=== PATIENT | female | born 1940 | race Caucasian/White ===

== ENCOUNTER 2021-07-29 12:30 | Inpatient (IN) | payer MEDICARE ==
[~2021-07-29] VITALS: Ht 157.5 cm; Wt 64.8 kg
--- NOTE | 2021-07-29 13:15 | NUR ---
Admission Note with Justification for Admission to [facility] Patient admitted to [facility] for protective oversight for emergency stabilization of acute psychiatric crisis. Pt admitted from: Home/[facility] Mode of arrival: EMS Accompanied By: EMS Precipitating behaviors that initiated intake and admission: EMS found gas stove on in the home, food & cat feces scattered on floor, AMS, psychosis, self care failure, unsafe at home, delusions, pt found outside her home on the ground in hot weather, seeing policemen, fear of ending up in [facility], paranoid Description of failure of out patient attempts at stabilization in previous setting list behavior and medication trials: hospital ER 07/21, lithium, ativan, lamictal, increased lithium on 07/19/21 Behaviors and assessment findings upon admission: Pt is very pleasant and cooperative upon arrival, but slightly confused, oriented to self and date. Pt is not aware where she is, but able to tell me where she was before coming here. Pt has some bruising on her arms and a rash that covers her entire back, but reports she is not bothered by it. Pt denies having any pain/concerns, but requests something to eat. Boxed lunch was ordered from the kitchen and pt was left alone in her room to rest. Will continue to monitor. Plan: Admit for protective oversight for adjustment and stabilization of medications, behaviors and mood. Intense treatment regimen including groups, medication adjustments, therapy, consistent regimen for ADL's, self care, and sleep hygiene. Daily monitoring by Inpatient staff, Psychiatry, and Medical Physician.
[2021-07-29 14:37] VITALS: BP 130/85
[2021-07-29] MEDS ORDERED: ACETAMINOPHEN 325 MG TABLET PO PRN (15:00)
[2021-07-29] MEDS ORDERED: METHYL SALICYLATE/MENTHOL TOPICAL OINTMENT 57GM TUBE. TP PRN (15:00)
[2021-07-29] MEDS ORDERED: MAGNESIUM HYDROXIDE 2,400 MG/30 ML ORAL.SUSP. PO PRN (15:00)
[2021-07-29] MEDS ORDERED: MAG HYDROX/AL HYDROX/SIMETH 30 ML ORAL.SUSP PO PRN (15:00)
[2021-07-29] MEDS ORDERED: ASPI-889 PO (15:39)
[2021-07-29] MEDS ORDERED: LITH150C PO (15:39)
[2021-07-29] MEDS ORDERED: LITH300T3 PO (15:39)
[2021-07-29] MEDS ORDERED: LEVO75TA5 PO (15:39)
[2021-07-29] MEDS ORDERED: DONE5TAB7 PO (15:39)
[2021-07-29] MEDS ORDERED: ACET325T21 PO (15:39)
[2021-07-29] MEDS ORDERED: NIFE90TA PO (15:39)
[2021-07-29 15:59] VITALS: BP 164/95
[2021-07-29 16:56] LABS: BASO # 0.1 x10^3/uL (0.0-0.2); BASO % 1 % (0-3); EOS # 0.4 x10^3/uL (0.0-0.7); EOS % 3 % (0-3); HEMATOCRIT 43.7 % (36.0-47.0); HEMOGLOBIN 14.1 g/dL (12.0-15.5); LYMPH % 16 % (24-48); MEAN CORPUSCULAR HEMOGLOBIN 32 pg (25-35); MEAN CORPUSCULAR HGB CONC 32 g/dL (31-37); MEAN CORPUSCULAR VOLUME 98 fL (79-100); MONO # 0.9 x10^3/uL (0.0-1.1); MONO % 7 % (0-9); NEUT # 8.8 x10^3uL (1.8-7.7); NEUT % 73 % (31-73); PLATELET COUNT 255 x10^3/uL (140-400); RED BLOOD COUNT 4.46 x10^6/uL (3.50-5.40); RED CELL DISTRIBUTION WIDTH 14.3 % (11.5-14.5); WHITE BLOOD COUNT 12.1 x10^3/uL (4.0-11.0)
[2021-07-29 17:14] LABS: ALBUMIN 3.7 g/dL (3.4-5.0); ALBUMIN/GLOBULIN RATIO 0.9 (1.0-1.7); CALCIUM 10.1 mg/dL (8.5-10.1); CREATININE 1.5 mg/dL (0.6-1.0); GFR 33.4; MAGNESIUM 2.5 mg/dL (1.8-2.4); POTASSIUM 4.6 mmol/L (3.5-5.1); TOTAL BILIRUBIN 0.3 mg/dL (0.2-1.0); TOTAL PROTEIN 7.7 g/dL (6.4-8.2)
[2021-07-29] MEDS: LITHIUM CARBONATE 300 MG TABLET PO SCH (19:58)
[2021-07-29] MEDS: DONEPEZIL HCL 5 MG TABLET. PO SCH (19:58)
[2021-07-29] MEDS ORDERED: NON FORMULARY ITEM (Lithium Carbonate 300 MG) PO SCH (21:00)
[2021-07-29] MEDS ORDERED: traZODone 50 MG TABLET. PO PRN (21:30)
--- NOTE | 2021-07-29 22:26 | PDOC ---
Exam Note: Isaiah Note: Please also refer to the separate dictated note~for this date of service dictated separately.~Patient seen individually. Discussed the patient with Nursing staff reviewed the chart.~Reviewed interim history and current functioning. Reviewed vital signs,~Labs/ Radiology~and current medications noted below. Continue current treatment with the changes noted in the dictated addendum note Assessment: Vital Signs/I&O: Vital Signs Date Time Temp Pulse Resp B/P (MAP) Pulse Ox O2 Delivery O2 Flow Rate FiO2 07/29/21 15:59 98.3 90 18 164/95 (118) 97 Labs: Laboratory Tests Test 07/29/21 16:46 White Blood Count 12.1 x10^3/uL (4.0-11.0) H Red Blood Count 4.46 x10^6/uL (3.50-5.40) Hemoglobin 14.1 g/dL (12.0-15.5) Hematocrit 43.7 % (36.0-47.0) Mean Corpuscular Volume 98 fL (79-100) Mean Corpuscular Hemoglobin 32 pg (25-35) Mean Corpuscular Hemoglobin Concent 32 g/dL (31-37) Red Cell Distribution Width 14.3 % (11.5-14.5) Platelet Count 255 x10^3/uL (140-400) Neutrophils (%) (Auto) 73 % (31-73) Lymphocytes (%) (Auto) 16 % (24-48) L Monocytes (%) (Auto) 7 % (0-9) Eosinophils (%) (Auto) 3 % (0-3) Basophils (%) (Auto) 1 % (0-3) Neutrophils # (Auto) 8.8 x10^3uL (1.8-7.7) H Lymphocytes # (Auto) 2.0 x10^3/uL (1.0-4.8) Monocytes # (Auto) 0.9 x10^3/uL (0.0-1.1) Eosinophils # (Auto) 0.4 x10^3/uL (0.0-0.7) Basophils # (Auto) 0.1 x10^3/uL (0.0-0.2) D-Dimer (Gwen) 1.88 mg/L (0.00-0.50) H Sodium Level 140 mmol/L (136-145) Potassium Level 4.6 mmol/L (3.5-5.1) Chloride Level 106 mmol/L (98-107) Carbon Dioxide Level 24 mmol/L (21-32) Anion Gap 10 (6-14) Blood Urea Nitrogen 37 mg/dL (7-20) H Creatinine 1.5 mg/dL (0.6-1.0) H Estimated GFR (Cockcroft-Gault) 33.4 BUN/Creatinine Ratio 25 (6-20) H Glucose Level 110 mg/dL (70-99) H Calcium Level 10.1 mg/dL (8.5-10.1) Magnesium Level 2.5 mg/dL (1.8-2.4) H Total Bilirubin 0.3 mg/dL (0.2-1.0) Aspartate Amino Transferase (AST) 26 U/L (15-37) Alanine Aminotransferase (ALT) 41 U/L (14-59) Alkaline Phosphatase 111 U/L (46-116) Total Protein 7.7 g/dL (6.4-8.2) Albumin 3.7 g/dL (3.4-5.0) Albumin/Globulin Ratio 0.9 (1.0-1.7) L Current Medications: Meds: Current Medications Medications (Trade) Dose Ordered Sig/Miki Route PRN Reason Start Time Stop Time Status Last Admin Dose Admin Donepezil HCl (Aricept) 5 mg HS PO 07/29/21 21:00 07/29/21 19:58 [place] Carbonate 300 mg QHS PO 07/29/21 21:00 07/29/21 19:58 I have reviewed the current psychotropics carefully including drug interactions. Risk benefit ratio favors no change other than as noted in my dictated progress note. AUSTEN FLETCHER MD Jul 29, 2021 22:26
--- NOTE | 2021-07-30 00:36 | NUR ---
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 She rambles on at length about how she is an informed member of the society, and that she makes good choices regarding her views and political involvement. States she is sure that her knowledge will be wasted here, that she is above everyone here. Pt a bit grandiose and delusional about her life and job. Hyperverbal rambles about various topics. Difficult to redirect. Pj given around 0015 for psychosis and agitation. Now resting.
[2021-07-30] MEDS: LEVOTHYROXINE 75 MCG TABLET PO SCH (05:47)
[2021-07-30 06:03] VITALS: BP 125/72
--- NOTE | 2021-07-30 06:32 | EKG ---
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
[2021-07-30] MEDS: ASPIRIN ENTERIC COATED 81 MG TABLET.DR. PO SCH (08:38)
[2021-07-30] MEDS: LITHIUM CARBONATE 300 MG TABLET PO SCH ×2 (08:39→19:33)
[2021-07-30] MEDS ORDERED: LITHIUM CARBONATE 150 MG PO SCH (09:00)
[2021-07-30] MEDS ORDERED: NIFEDIPINE 90 MG PO SCH (09:00)
--- NOTE | 2021-07-30 10:02 | NUR ---
Nurse Notes Patient alert, oriented to self, confused. Patient ambulates small steps to room and hallway. speech is clear; she is grandiose about her life. feeds self continues on puree diet thin liquids. She takes all medication whole. difficult at times to redirect. toilet self and assist with showers.no agatation at this time.
[2021-07-30 10:44] LABS: THYROID STIM HORMONE (TSH) 1.14 uIU/mL (0.358-3.740)
[2021-07-30] MEDS: NICOTINE 14MG PATCH. TD SCH (11:00)
--- NOTE | 2021-07-30 11:00 | NUR ---
Nurse note Dr. Hardy talked to daughter about patient, daughter ask for a nicotine for patient as she used to smoke a pack a day. New order for Nicotine patch 14 mg daily.Patient has received the first patch today at 1100am.
--- NOTE | 2021-07-30 15:53 | CONS ---
DATE OF CONSULTATION: 07/30/2021 ATTENDING PHYSICIAN: Dr. Fletcher We are asked to see the patient for medical consultation. HISTORY OF PRESENT ILLNESS: The patient is an 81-year-old female from [place], [place]. 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 She is very confused. She has profound dementia. She was found with a gas stove on in her home. There is significant neglect. There is cat waste and food all over the house. She is delusional. She was found outside the home in the ground in the hot weather. Seeing a fire equipment inspector helper they were not there, hallucinating. She is afraid of ending up in long term. Her CT of the head showed global atrophy. She has profound dementia. She has a history of bipolar disorder. She is admitted here for further treatment and evaluation. PAST MEDICAL HISTORY: Obtained from the chart is significant for bipolar depression, hypertension, history of old stroke, hypothyroidism on replacement and Alzheimer dementia. ALLERGIES: SHE HAS ALLERGIES TO CIPROFLOXACIN AND TRAZODONE. EXACT REACTION IS UNCLEAR. CURRENT MEDICINES: Prior to coming in include Tylenol, aspirin, Aricept, Synthroid 75 mcg daily, lithium and nifedipine 90 mg daily. SOCIAL HISTORY: She is a nonsmoker, nondrinker. FAMILY HISTORY: Unobtainable. REVIEW OF SYSTEMS: Significant for the behavioral issues and the fact that she is not safe to be alone in her house. She has a daughter who is the power of family law attorney, her name is Yusuf. 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 She is a DNR per advanced directive. PHYSICAL EXAMINATION: GENERAL: When I saw her, this is a pleasant elderly female who has severe kyphoscoliosis. She is hunched over significantly with some restrictions of her lungs function. VITAL SIGNS: Showed a blood pressure 130/85 mmHg, temperature 97.5 degrees Fahrenheit, pulse is 77 and regular, and her oxygen saturations are 97% on room air. HEENT: Head is without trauma. Pupils are reactive. Sclerae nonicteric. Oropharynx is clear. NECK: Supple, no bruits. LUNGS: Shallow respirations. CARDIOVASCULAR: Showed regular heart tones. No gallops. ABDOMEN: Soft. EXTREMITIES: Show degenerative arthritis. MUSCULOSKELETAL: She has severe kyphoscoliosis with restrictive lung disease. SKIN: Warm and dry. I looked at the skin on her back, there are multiple punctate lesions with scabbing this is due to folliculitis. NEUROLOGIC: Alert, but pleasantly confused. PERTINENT LABORATORY STUDIES: Her hemoglobin is 14.1 g/dL with a white count of 12,100. Her chemistry panel, electrolytes are within normal range. Creatinine is 1.5 mg/dL. Nonfasting blood sugar 110. Serology is pending. ASSESSMENT: 1. An 81-year-old female, who was found to have behavioral issues and inability to care for herself. She has some delusions and paranoia. 2. Bipolar disorder, longstanding. 3. Severe kyphoscoliosis with restrictive lung disease. 4. Asymptomatic finding of folliculitis on her back due to poor hygiene. 5. History of hypertension. 6. History of hypothyroidism, on replacement. RECOMMENDATIONS: 1. I did review her medicines, they are simplified and should be continued. 2. She is stable from medical standpoint. 3. I shall try to call her daughter and gave her an updated report. 4. I do believe the patient has reached the point in her life where it is unsafe for her to return home and needs to go to a higher level of care such as a senior living. NATALIE/MICHA/TIMOTHY DR: Racheal TID: [id number] CC: AUSTEN FLETCHER MD
[2021-07-30 16:09] VITALS: BP 131/82
[2021-07-30 18:11] LABS: BILIRUBIN,URINE NEG (NEG); CLARITY,URINE CLEAR; COLOR,URINE YELLOW; GLUCOSE,URINE NEG (NEG); UROBILINOGEN,URINE 0.2 mg/dL (0.2 mg/dL)
[2021-07-30 18:12] LABS: BACTERIA,URINE 0 /HPF (0-FEW); NITRITE,URINE NEG (NEG); RBC,URINE 0 /HPF (0-2); SQUAMOUS EPITHELIAL CELL,UR OCC /LPF; WBC,URINE 0 /HPF (0-4)
[2021-07-30] MEDS: DONEPEZIL HCL 5 MG TABLET. PO SCH (19:33)
[2021-07-30] MEDS: LORazepam 0.5 MG TABLET PO PRN (21:47)
--- NOTE | 2021-07-30 22:11 | PDOC ---
Exam Note: Isaiah Note: Please also refer to the separate dictated note~for this date of service dictated separately.~Patient seen individually. Discussed the patient with Nursing staff reviewed the chart.~Reviewed interim history and current functioning. Reviewed vital signs,~Labs/ Radiology~and current medications noted below. Continue current treatment with the changes noted in the dictated addendum note Assessment: Vital Signs/I&O: Vital Signs Date Time Temp Pulse Resp B/P (MAP) Pulse Ox O2 Delivery O2 Flow Rate FiO2 07/30/21 16:09 97.3 77 18 131/82 (98) 94 I & O 07/29/21 07/29/21 07/30/21 15:00 23:00 07:00 Intake Total 360 ml Balance 360 ml Labs: Laboratory Tests Test 07/30/21 17:45 Urine Collection Type Void Urine Color Yellow Urine Clarity Clear Urine pH 6.0 Urine Specific [place] 1.010 Urine Protein Neg (NEG-TRACE) Urine Glucose (UA) Neg mg/dL (NEG) Urine Ketones (Stick) Neg mg/dL (NEG) Urine Blood Neg (NEG) Urine Nitrite Neg (NEG) Urine Bilirubin Neg (NEG) Urine Urobilinogen Dipstick 0.2 mg/dL (0.2 mg/dL) Urine Leukocyte Esterase Neg (NEG) Urine RBC 0 /HPF (0-2) Urine WBC 0 /HPF (0-4) Urine Squamous Epithelial Cells Occ /LPF Urine Bacteria 0 /HPF (0-FEW) Current Medications: Meds: Current Medications Medications (Trade) Dose Ordered Sig/Miki Route PRN Reason Start Time Stop Time Status Last Admin Dose Admin Aspirin (Aspirin Enteric Coated) 81 mg DAILY PO 07/30/21 09:00 07/30/21 08:38 Levothyroxine Sodium (Synthroid) 75 mcg DAILY06 PO 07/30/21 06:00 07/30/21 05:47 Nifedipine (Procardia Xl) 90 mg DAILY PO 07/30/21 09:00 07/30/21 08:38 [place] Carbonate 150 mg DAILY PO 07/30/21 09:00 07/30/21 08:39 Nicotine (Nicoderm Cq 14mg Patch) 1 patch DAILY TD 07/30/21 11:00 07/30/21 11:00 Lorazepam (Ativan) 0.5 mg PRN Q4HRS PRN PO ANXIETY / AGITATION 07/30/21 21:45 07/30/21 21:47 I have reviewed the current psychotropics carefully including drug interactions. Risk benefit ratio favors no change other than as noted in my dictated progress note. Diagnosis: Problems: (1) Major neurocognitive disorder AUSTEN FLETCHER MD Jul 30, 2021 22:11
--- NOTE | 2021-07-30 23:19 | HP ---
ADMIT DATE: 07/29/2021 PSYCHIATRIC ADMISSION HISTORY/EVALUATION This is a late entry, date of service 07/29/2021 covers elements not covered in my initial note 07/29/2021. I met with the patient the evening of 07/29/2021, discussed with nursing staff, previously discussed with Shelli Cummings, on site coordinator. IDENTIFYING DATA: The patient is an 81-year-old female referred to us from [facility] in [place], [place] by her primary care physician on account of increased confusion. On 07/29/2021, the emergency medical services found the gas stove in the home had been left turned on. She was quite confused, psychotic, had a failure of self-care, unsafe at home. She was delusional and found outside her home on the ground in hot weather. She was reportedly seeing mop man, was delirious. There was fear that she would end up in [facility]. She was paranoid and in her home there were food and cat feces scattered on the floor. The patient reportedly has a outgoing inspector helping her, but there is no family around and she is . Behaviors were deemed dangerous, unmanageable. She was referred to the [facility], evaluated and then referred to us for psychiatric stabilization. CHIEF COMPLAINT: "Yes, I have mild bipolar disorder. I go grocery shopping with my aide. I have 1 daughter who is an deputy attorney general, but in a different state and I have 1 son. No, I don't remember when I came here or how many days I have been here." The patient responded above in response to my specific questions to her. HISTORY OF PRESENT ILLNESS: The patient reportedly has a history of bipolar disorder, but recently getting more confused, delirious, living alone at home with some limited assistance. She has had sleep and appetite changes, psychotic symptoms, worsening confusion. No active suicidal or homicidal ideation, but the behaviors were deemed dangerous and a potential and significant risk to herself. PAST PSYCHIATRIC HISTORY: As above. 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 ACCU-CHEKS: None. CODE STATUS: Full code. ALLERGIES: CIPRO AND TRAZODONE. DIET: Pureed and thin liquids. Ambulates with walker, very unsteady. CURRENT PSYCHOTROPICS: Exira 150 mg daily, 300 mg at bedtime; Aricept 5 mg at bedtime. FAMILY HISTORY: Noncontributory. 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 No alcohol, drug abuse, physical, sexual or elder abuse history is noted. She is not known to be a perpetrator. REACTION TO HOSPITALIZATION: The patient accepting of it. ASSETS: Supportive family, but she may need a higher level of care. REVIEW OF SYSTEMS: Ambulation impaired. No CV, , pulmonary, eye, ENT system symptoms on review. Reliability poor. MENTAL STATUS EXAM: Oriented to herself, situation. Speech has some latency, coherent. Abstraction fair. Computation impaired. Language function intact. Attention span short. She is quite distractible, but otherwise very pleasant, cooperative, at times somewhat circumstantial. LABORATORY DATA: Reviewed. IMPRESSION: Bipolar 1 disorder, mixed with psychotic features; anxiety disorder, unspecified; major neurocognitive disorder, possibly with delusion, depression, behavioral disturbance; delirium, unspecified. Rest unchanged as above. PLAN: Admit to geropsychiatry unit at [facility]. I will see the patient daily individually from a psychiatric standpoint, medical followup with Dr. Hardy/Dr. Lewis. Continue current psychotropics. Observe baseline. Check a lithium level and make further adjustments as clinically indicated. The patient may need an out of home placement or perhaps closer to her daughter or son. ESTIMATED LENGTH OF STAY: 10-12 days. DISPOSITION PLANS: Once stable, placement arrangements will be made by social service staff. IGOR DR: Dinah TID: [id number]
--- NOTE | 2021-07-30 23:21 | NUR ---
Nursing Note Pt complains of feeling twitchy, shaking and anxious. Asks why she isn't getting her ativan. Paged Dr. garcia for Ativan order, also consulted Habib regarding supposed seizure history. She states she told EMS that but she used the wrong word, she was trying to find a word to describe shaking and feeling nervous. Habib to see tomorrow and ativan given this pm.
[2021-07-31 02:06] LABS: HEMOGLOBIN A1C 5.4 % (4.8-5.6)
[2021-07-31 04:06] LABS: THYROXINE 7.7 ug/dL (4.5-12.0)
[2021-07-31 05:45] VITALS: BP 100/68
[2021-07-31] MEDS: LEVOTHYROXINE 75 MCG TABLET PO SCH (06:00)
--- NOTE | 2021-07-31 08:48 | PDOC ---
Exam Note: Isaiah Note: This note is a late entry for 07/30/2021 covers elements not covered in my initial note. Subjective: The patient was seen individually in the evening of 07/30/2021 with Deborah VICTORIA, discussed and reviewed the chart. The patient slept 4-1/2 hours previous night. Overall the patient has had some swallowing problems. We will do a speech evaluation for this. She sits with her neck bent forward. She has had some coughing. We will defer to Dr. Hardy/Dr. Lewis. Positive for some tremors and nursing staff had called me after I rounded on the patient with Deborah VICTORIA and we will consult Dr. Hyde Neurology since she may have history of seizure disorder, possibly was on Lamictal at one point but that was from the records available due to her bipolar disorder. Review of Systems: Positive for tremors. Impaired ambulation. No CV, , pulmonary, eye system symptoms on review. Mental Status Exam: The patient is oriented to herself and situation. Speech coherent, has some latency. Abstraction fair. Computation impaired. Language function intact. Attention span short. Mood and affect withdrawn. No suicidal or homicidal ideation. Laboratory Data: Reviewed. Impression: Bipolar disorder mixed with psychotic features. Delirium unspecified. Rule out major neurocognitive disorder Alzheimer vascular with delusion. Anxiety disorder unspecified. Impulse control disorder unspecified. Plan: We will have speech eval as noted. We have added Zyprexa p.r.n., trazodone p.r.n. insomnia. Check lithium level in the morning. Maintain Aricept. Consider low dose Seroquel as an atypical antipsychotic depending on her progress. She will probably need placement closer to either her son or her daughter. We will discuss with social service staff tomorrow. Adjust further as clinically indicated. We may consider having CT head done as workup for confusion. Assessment: Vital Signs/I&O: Vital Signs Date Time Temp Pulse Resp B/P (MAP) Pulse Ox O2 Delivery O2 Flow Rate FiO2 07/31/21 05:45 98.0 70 16 100/68 (79) 96 I & O 07/30/21 07/30/21 07/31/21 15:00 23:00 07:00 Intake Total 720 ml 360 ml Balance 720 ml 360 ml Labs: Laboratory Tests Test 07/30/21 17:45 Urine Collection Type Void Urine Color Yellow Urine Clarity Clear Urine pH 6.0 Urine Specific [place] 1.010 Urine Protein Neg (NEG-TRACE) Urine Glucose (UA) Neg mg/dL (NEG) Urine Ketones (Stick) Neg mg/dL (NEG) Urine Blood Neg (NEG) Urine Nitrite Neg (NEG) Urine Bilirubin Neg (NEG) Urine Urobilinogen Dipstick 0.2 mg/dL (0.2 mg/dL) Urine Leukocyte Esterase Neg (NEG) Urine RBC 0 /HPF (0-2) Urine WBC 0 /HPF (0-4) Urine Squamous Epithelial Cells Occ /LPF Urine Bacteria 0 /HPF (0-FEW) Current Medications: Meds: Laboratory Tests Test 07/30/21 17:45 Urine Collection Type Void Urine Color Yellow Urine Clarity Clear Urine pH 6.0 Urine Specific [place] 1.010 Urine Protein Neg Urine Glucose (UA) Neg mg/dL Urine Ketones (Stick) Neg mg/dL Urine Blood Neg Urine Nitrite Neg Urine Bilirubin Neg Urine Urobilinogen Dipstick 0.2 mg/dL Urine Leukocyte Esterase Neg Urine RBC 0 /HPF Urine WBC 0 /HPF Urine Squamous Epithelial Cells Occ /LPF Urine Bacteria 0 /HPF Current Medications Medications (Trade) Dose Ordered Sig/Miki Route PRN Reason Start Time Stop Time Status Last Admin Dose Admin Acetaminophen (Tylenol) 650 mg PRN Q6HRS PRN PO MILD PAIN / TEMP > 100.3'F 07/29/21 15:00 07/29/21 15:44 DC Multi-Ingredient Ointment (Analgesic [place]) 1 martinez PRN QID PRN TP MUSCLE PAIN 07/29/21 15:00 Al Hydroxide/Mg Hydroxide (Mylanta Plus Xs) 15 ml PRN AFTMEALHC PRN PO DYSPEPSIA 07/29/21 15:00 Magnesium Hydroxide (Milk Of Magnesia) 2,400 mg PRN QHS PRN PO CONSTIPATION 07/29/21 15:00 Acetaminophen (Tylenol) 650 mg PRN Q4HRS PRN PO MILD PAIN / TEMP > 100.3'F 07/29/21 15:45 Aspirin (Aspirin Enteric Coated) 81 mg DAILY PO 07/30/21 09:00 07/30/21 08:38 Donepezil HCl (Aricept) 5 mg HS PO 07/29/21 21:00 07/30/21 19:33 Levothyroxine Sodium (Synthroid) 75 mcg DAILY06 PO 07/30/21 06:00 07/31/21 06:00 Non-Formulary Medication ([place] Carbonate ) 150 mg DAILY PO 07/30/21 09:00 07/29/21 16:01 DC Non-Formulary Medication ([place] Carbonate ) 300 mg HS PO 07/29/21 21:00 UNV Non-Formulary Medication (Nifedipine (Procardia Xl)) 90 mg DAILY PO 07/30/21 09:00 07/29/21 15:51 DC Nifedipine (Procardia Xl) 90 mg DAILY PO 07/30/21 09:00 07/30/21 08:38 [place] Carbonate 300 mg QHS PO 07/29/21 21:00 07/30/21 19:33 [place] Carbonate 150 mg DAILY PO 07/30/21 09:00 07/30/21 08:39 Olanzapine (ZyPREXA ZYDIS) 2.5 mg PRN Q2HRS PRN PO PSYCHOSIS 07/29/21 21:30 07/30/21 00:11 Trazodone HCl (Desyrel) 50 mg PRN QHS PRN PO INSOMNIA, MAY REPEAT X1 07/29/21 21:30 UNV Nicotine (Nicoderm Cq 14mg Patch) 1 patch DAILY TD 07/30/21 11:00 07/30/21 11:00 Lorazepam (Ativan) 0.5 mg PRN Q4HRS PRN PO ANXIETY / AGITATION 07/30/21 21:45 07/30/21 21:47 Current Medications Medications (Trade) Dose Ordered Sig/Miki Route PRN Reason Start Time Stop Time Status Last Admin Dose Admin Aspirin (Aspirin Enteric Coated) 81 mg DAILY PO 07/30/21 09:00 07/30/21 08:38 Nifedipine (Procardia Xl) 90 mg DAILY PO 07/30/21 09:00 07/30/21 08:38 [place] Carbonate 150 mg DAILY PO 07/30/21 09:00 07/30/21 08:39 Nicotine (Nicoderm Cq 14mg Patch) 1 patch DAILY TD 07/30/21 11:00 07/30/21 11:00 Lorazepam (Ativan) 0.5 mg PRN Q4HRS PRN PO ANXIETY / AGITATION 07/30/21 21:45 07/30/21 21:47 I have reviewed the current psychotropics carefully including drug interactions. Risk benefit ratio favors no change other than as noted in my dictated progress note. Diagnosis: Problems: (1) Bipolar disorder, current episode mixed, severe, with psychotic features (2) Delirium (3) Anxiety disorder, unspecified (4) Impulse control disorder, unspecified (5) Major neurocognitive disorder AUSTEN FLETCHER MD Jul 31, 2021 08:48
[2021-07-31] MEDS: LITHIUM CARBONATE 300 MG TABLET PO SCH ×2 (08:59→21:06)
[2021-07-31] MEDS: ASPIRIN ENTERIC COATED 81 MG TABLET.DR. PO SCH (08:59)
[2021-07-31] MEDS: NICOTINE 14MG PATCH. TD SCH (08:59)
--- NOTE | 2021-07-31 09:29 | NUR ---
Patient has been provided with Practical Counseling for tobacco cessation. It included a face to face interaction and the following was discussed: Recognizing danger situations, Developing coping skills,Basic cessation information. Will follow for discharge needs and discharge planning.
--- NOTE | 2021-07-31 11:21 | NUR ---
Nursing note: Pt sitting outside her room at time of AM med pass and assessment. Pt was resistive with her meds, questioning what each one was and why she was taking them. Pt was eventually compliant in taking all of her meds whole. She has walked up and down the hallway a few times today with her walker, but is currently sitting quietly in her room. Will continue to monitor.
--- NOTE | 2021-07-31 13:57 | NUR ---
WEEKLY ACTIVITY THERAPY NOTE Date of Admission: 07/29/2021 Date of AT Assessment: TBD Precipitating behaviors that initiated intake and admission: EMS found gas stove on in the home, food & cat feces scattered on floor, AMS, psychosis, self care failure, unsafe at home, delusions, pt found outside her home on the ground in hot weather, seeing policemen, fear of ending up in correction, paranoid Goal aimed: TBD Initial Goal: TBD Weekly progress towards goal: NA Group participation level: NA Weekly highlights: arrived on [facility] Behaviors observed: new patient Plan: meet/assess pt Beneficial adaptations: TBD
[2021-07-31 15:53] VITALS: BP 140/67
[2021-07-31] MEDS: DONEPEZIL HCL 5 MG TABLET. PO SCH (21:06)
[2021-07-31] MEDS: LORazepam 0.5 MG TABLET PO PRN (21:38)
--- NOTE | 2021-07-31 22:16 | PDOC ---
Exam Note: Isaiah Note: Please also refer to the separate dictated note~for this date of service dictated separately.~Patient seen individually. Discussed the patient with Nursing staff reviewed the chart.~Reviewed interim history and current functioning. Reviewed vital signs,~Labs/ Radiology~and current medications noted below. Continue current treatment with the changes noted in the dictated addendum note Assessment: Vital Signs/I&O: Vital Signs Date Time Temp Pulse Resp B/P (MAP) Pulse Ox O2 Delivery O2 Flow Rate FiO2 07/31/21 15:53 97.3 87 18 140/67 (91) 95 I & O 07/30/21 07/30/21 07/31/21 15:00 23:00 07:00 Intake Total 720 ml 360 ml Balance 720 ml 360 ml Current Medications: Meds: Current Medications Medications (Trade) Dose Ordered Sig/Miki Route PRN Reason Start Time Stop Time Status Last Admin Dose Admin Acetaminophen (Tylenol) 650 mg PRN Q6HRS PRN PO MILD PAIN / TEMP > 100.3'F 07/29/21 15:00 07/29/21 15:44 DC Multi-Ingredient Ointment (Analgesic [place]) 1 martinez PRN QID PRN TP MUSCLE PAIN 07/29/21 15:00 Al Hydroxide/Mg Hydroxide (Mylanta Plus Xs) 15 ml PRN AFTMEALHC PRN PO DYSPEPSIA 07/29/21 15:00 Magnesium Hydroxide (Milk Of Magnesia) 2,400 mg PRN QHS PRN PO CONSTIPATION 07/29/21 15:00 Acetaminophen (Tylenol) 650 mg PRN Q4HRS PRN PO MILD PAIN / TEMP > 100.3'F 07/29/21 15:45 Aspirin (Aspirin Enteric Coated) 81 mg DAILY PO 07/30/21 09:00 07/31/21 08:59 Donepezil HCl (Aricept) 5 mg HS PO 07/29/21 21:00 07/31/21 21:06 Levothyroxine Sodium (Synthroid) 75 mcg DAILY06 PO 07/30/21 06:00 07/31/21 06:00 Non-Formulary Medication ([place] Carbonate ) 150 mg DAILY PO 07/30/21 09:00 07/29/21 16:01 DC Non-Formulary Medication ([place] Carbonate ) 300 mg HS PO 07/29/21 21:00 UNV Non-Formulary Medication (Nifedipine (Procardia Xl)) 90 mg DAILY PO 07/30/21 09:00 07/29/21 15:51 DC Nifedipine (Procardia Xl) 90 mg DAILY PO 07/30/21 09:00 07/31/21 08:59 [place] Carbonate 300 mg QHS PO 07/29/21 21:00 07/31/21 21:06 [place] Carbonate 150 mg DAILY PO 07/30/21 09:00 07/31/21 08:59 Olanzapine (ZyPREXA ZYDIS) 2.5 mg PRN Q2HRS PRN PO PSYCHOSIS 07/29/21 21:30 07/30/21 00:11 Trazodone HCl (Desyrel) 50 mg PRN QHS PRN PO INSOMNIA, MAY REPEAT X1 07/29/21 21:30 UNV Nicotine (Nicoderm Cq 14mg Patch) 1 patch DAILY TD 07/30/21 11:00 07/31/21 08:59 Lorazepam (Ativan) 0.5 mg PRN Q4HRS PRN PO ANXIETY / AGITATION 07/30/21 21:45 07/31/21 21:38 I have reviewed the current psychotropics carefully including drug interactions. Risk benefit ratio favors no change other than as noted in my dictated progress note. Diagnosis: Problems: (1) Major neurocognitive disorder (2) Impulse control disorder, unspecified (3) Anxiety disorder, unspecified (4) Bipolar disorder, current episode mixed, severe, with psychotic features AUSTEN FLETCHER MD Jul 31, 2021 22:16
--- NOTE | 2021-08-01 00:19 | NUR ---
Nursing Note PT quizzes me about her meds, states she has never taken dementia meds that there is nothing wrong with my mind or my memory. Explained to her reasons/indication and then she seemed to be ok with taking it. Pt starts rambling about something making no sense, and when I ask her what she said she states "Oh just never mind, you won't get it." Now patient resting.
[2021-08-01] MEDS: LEVOTHYROXINE 75 MCG TABLET PO SCH (06:00)
[2021-08-01 06:05] VITALS: BP 136/76
[2021-08-01] MEDS: ASPIRIN ENTERIC COATED 81 MG TABLET.DR. PO SCH (08:13)
[2021-08-01] MEDS: LITHIUM CARBONATE 300 MG TABLET PO SCH ×2 (08:13→19:44)
[2021-08-01] MEDS: ACETAMINOPHEN 325 MG TABLET PO PRN (08:20)
--- NOTE | 2021-08-01 08:36 | PDOC ---
Exam Note: Isaiah Note: This note is a late entry for 07/31/2021 covers elements not covered in my initial note. Subjective: The patient was reviewed at treatment team meeting individually in the morning on 07/31/2021 with Shelli Arango, Sunitha Ford (social worker), Kylah, activity therapy and Mariely VICTORIA, discussed and reviewed the chart. The patient slept 7 hours previous night. Sleeping average 5 hours. Appetite is 75%. She has been pleasant, cooperative with various treatments in groups. She was obsessing about her anti-hypertensive medications, feeling she is not getti ng them in the morning and I reassured her she was. She is wanting her scheduled Ativan 0.5 mg h.s. She states she has been taking that for quite some time and we will go ahead and restart it, change it from p.r.n. to one single dosage. We had lengthy discussion about placement options post discharge and she states she plans to move to her daughter in the [place] area after selling her house here. We have consulted Dr. Hyde as well. CT head shows no acute changes. [place] level is therapeutic at 0.9. Also discussed with Deborah VICTORIA in the evening. CT shows microvascular changes and atrophy. Review of Systems: Impaired ambulation. No CV, , pulmonary, eye system symptoms on review. She has had some hand tremors and we will restart Ativan 0.5 mg h.s. Mental Status Exam: The patient is oriented to herself and situation. Speech coherent, has some latency. Abstraction fair. Computation impaired. Language function intact. Attention span short. Mood and affect somewhat labile at times. Laboratory Data: Reviewed. Impression: Bipolar 1 disorder mixed with psychotic features. Mild cognitive impairment. Anxiety disorder unspecified. Impulse control disorder unspecified. Plan: Continue current psychotropics. We will change to single dose Ativan 0.5 mg h.s. and schedule the rest p.r.n. Maintain lithium at current dosage. Adjust further as clinically indicated. Assessment: Vital Signs/I&O: Vital Signs Date Time Temp Pulse Resp B/P (MAP) Pulse Ox O2 Delivery O2 Flow Rate FiO2 08/01/21 08:15 74 136/76 08/01/21 06:05 97.6 16 98 I & O 07/31/21 07/31/21 08/01/21 15:00 23:00 07:00 Intake Total 600 ml 660 ml Balance 600 ml 660 ml Current Medications: Meds: Current Medications Medications (Trade) Dose Ordered Sig/Miki Route PRN Reason Start Time Stop Time Status Last Admin Dose Admin Acetaminophen (Tylenol) 650 mg PRN Q6HRS PRN PO MILD PAIN / TEMP > 100.3'F 07/29/21 15:00 07/29/21 15:44 DC Multi-Ingredient Ointment (Analgesic [place]) 1 martinez PRN QID PRN TP MUSCLE PAIN 07/29/21 15:00 Al Hydroxide/Mg Hydroxide (Mylanta Plus Xs) 15 ml PRN AFTMEALHC PRN PO DYSPEPSIA 07/29/21 15:00 Magnesium Hydroxide (Milk Of Magnesia) 2,400 mg PRN QHS PRN PO CONSTIPATION 07/29/21 15:00 Acetaminophen (Tylenol) 650 mg PRN Q4HRS PRN PO MILD PAIN / TEMP > 100.3'F 07/29/21 15:45 08/01/21 08:20 Aspirin (Aspirin Enteric Coated) 81 mg DAILY PO 07/30/21 09:00 08/01/21 08:13 Donepezil HCl (Aricept) 5 mg HS PO 07/29/21 21:00 07/31/21 21:06 Levothyroxine Sodium (Synthroid) 75 mcg DAILY06 PO 07/30/21 06:00 08/01/21 06:00 Non-Formulary Medication ([place] Carbonate ) 150 mg DAILY PO 07/30/21 09:00 07/29/21 16:01 DC Non-Formulary Medication ([place] Carbonate ) 300 mg HS PO 07/29/21 21:00 UNV Non-Formulary Medication (Nifedipine (Procardia Xl)) 90 mg DAILY PO 07/30/21 09:00 07/29/21 15:51 DC Nifedipine (Procardia Xl) 90 mg DAILY PO 07/30/21 09:00 07/31/21 08:59 [place] Carbonate 300 mg QHS PO 07/29/21 21:00 07/31/21 21:06 [place] Carbonate 150 mg DAILY PO 07/30/21 09:00 08/01/21 08:13 Olanzapine (ZyPREXA ZYDIS) 2.5 mg PRN Q2HRS PRN PO PSYCHOSIS 07/29/21 21:30 07/30/21 00:11 Trazodone HCl (Desyrel) 50 mg PRN QHS PRN PO INSOMNIA, MAY REPEAT X1 07/29/21 21:30 UNV Nicotine (Nicoderm Cq 14mg Patch) 1 patch DAILY TD 07/30/21 11:00 07/31/21 08:59 Lorazepam (Ativan) 0.5 mg PRN Q4HRS PRN PO ANXIETY / AGITATION 07/30/21 21:45 07/31/21 21:38 Lorazepam (Ativan) 0.5 mg HS PO 08/01/21 21:00 I have reviewed the current psychotropics carefully including drug interactions. Risk benefit ratio favors no change other than as noted in my dictated progress note. Diagnosis: Problems: (1) Major neurocognitive disorder (2) Impulse control disorder, unspecified (3) Anxiety disorder, unspecified (4) Bipolar disorder, current episode mixed, severe, with psychotic features AUSTEN FLETCHER MD Aug 01, 2021 08:36
[2021-08-01] MEDS: NICOTINE 14MG PATCH. TD SCH ×2 (09:00→11:04)
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
[2021-08-01] MEDS: POLYVINYL ALCOHOL 1.4% OPHTH SOLUTION 15ML BOTTLE. OU PRN ×2 (12:21→19:44)
--- NOTE | 2021-08-01 12:49 | NUR ---
nsg note; skyla has been calm, cooperative, med compliant and pleasant today. when another pt's hyperverbal-ness bothered her, she removed herself from the situation and went down the fernandez. she likes to read the newspaper and write on paper given to her.
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
[2021-08-01 16:11] VITALS: BP 143/83
[2021-08-01] MEDS: DONEPEZIL HCL 5 MG TABLET. PO SCH (19:44)
[2021-08-01] MEDS: LORazepam 0.5 MG TABLET PO SCH (19:45)
--- NOTE | 2021-08-01 23:30 | NUR ---
Nursing Note Pt talks at length about travelling through [place] and [place]. Toured with her for his employment, they were able to see many places paid for by his position a the [employer]. She told me about [facility], [place], [place], [place] [facility], [place], [place] and more. She has lots of life experience and exposure to culture and customs. 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 Pt in good spirits, takes po meds, is not manic or hyperverbal this pm.
[2021-08-02 01:25] LABS: BILIRUBIN,URINE NEG (NEG); CLARITY,URINE CLEAR; COLOR,URINE YELLOW; GLUCOSE,URINE NEG (NEG)
[2021-08-02 01:26] LABS: BACTERIA,URINE 0 /HPF (0-FEW); NITRITE,URINE NEG (NEG); RBC,URINE 0 /HPF (0-2); UROBILINOGEN,URINE 0.2 mg/dL (0.2 mg/dL); WBC,URINE 0 /HPF (0-4)
[2021-08-02] MEDS: LEVOTHYROXINE 75 MCG TABLET PO SCH (06:00)
[2021-08-02 06:58] VITALS: BP 111/63
[2021-08-02] MEDS: ASPIRIN ENTERIC COATED 81 MG TABLET.DR. PO SCH (08:20)
[2021-08-02] MEDS: LITHIUM CARBONATE 300 MG TABLET PO SCH ×2 (08:20→20:35)
[2021-08-02] MEDS: NICOTINE 14MG PATCH. TD SCH (08:21)
[2021-08-02] MEDS: POLYVINYL ALCOHOL 1.4% OPHTH SOLUTION 15ML BOTTLE. OU PRN ×2 (08:31→20:46)
--- NOTE | 2021-08-02 14:58 | NUR ---
Nsg Note; Loraine is alert and oriented, more forgetful than confused, and is able to make her needs known. She has enjoyed spending time in the hallway, socializing with staff and other patients. She is indep amb with a walker, feeds and toilets herself. She has been pleasant and med compliant today
[2021-08-02 15:51] VITALS: BP 140/68
[2021-08-02] MEDS: LORazepam 0.5 MG TABLET PO SCH (20:35)
[2021-08-02] MEDS: DONEPEZIL HCL 5 MG TABLET. PO SCH (20:35)
--- NOTE | 2021-08-02 21:47 | PDOC ---
Exam Note: Isaiah Note: Please also refer to the separate dictated note~for this date of service dictated separately.~Patient seen individually. Discussed the patient with Nursing staff reviewed the chart.~Reviewed interim history and current functioning. Reviewed vital signs,~Labs/ Radiology~and current medications noted below. Continue current treatment with the changes noted in the dictated addendum note Assessment: Vital Signs/I&O: Vital Signs Date Time Temp Pulse Resp B/P (MAP) Pulse Ox O2 Delivery O2 Flow Rate FiO2 08/02/21 15:51 98.0 47 19 140/68 (92) 94 I & O 08/01/21 08/01/21 08/02/21 15:00 23:00 07:00 Intake Total 720 ml 320 ml Balance 720 ml 320 ml Labs: Laboratory Tests Test 08/02/21 01:05 Urine Collection Type Unknown Urine Color Yellow Urine Clarity Clear Urine pH 6.5 Urine Specific [place] 1.010 Urine Protein Neg (NEG-TRACE) Urine Glucose (UA) Neg mg/dL (NEG) Urine Ketones (Stick) Neg mg/dL (NEG) Urine Blood Neg (NEG) Urine Nitrite Neg (NEG) Urine Bilirubin Neg (NEG) Urine Urobilinogen Dipstick 0.2 mg/dL (0.2 mg/dL) Urine Leukocyte Esterase Neg (NEG) Urine RBC 0 /HPF (0-2) Urine WBC 0 /HPF (0-4) Urine Squamous Epithelial Cells None /LPF Urine Bacteria 0 /HPF (0-FEW) Current Medications: Meds: Laboratory Tests Test 08/02/21 01:05 Urine Collection Type Unknown Urine Color Yellow Urine Clarity Clear Urine pH 6.5 Urine Specific [place] 1.010 Urine Protein Neg Urine Glucose (UA) Neg mg/dL Urine Ketones (Stick) Neg mg/dL Urine Blood Neg Urine Nitrite Neg Urine Bilirubin Neg Urine Urobilinogen Dipstick 0.2 mg/dL Urine Leukocyte Esterase Neg Urine RBC 0 /HPF Urine WBC 0 /HPF Urine Squamous Epithelial Cells None /LPF Urine Bacteria 0 /HPF Current Medications Medications (Trade) Dose Ordered Sig/Miki Route PRN Reason Start Time Stop Time Status Last Admin Dose Admin Acetaminophen (Tylenol) 650 mg PRN Q6HRS PRN PO MILD PAIN / TEMP > 100.3'F 07/29/21 15:00 07/29/21 15:44 DC Multi-Ingredient Ointment (Analgesic [place]) 1 martinez PRN QID PRN TP MUSCLE PAIN 07/29/21 15:00 Al Hydroxide/Mg Hydroxide (Mylanta Plus Xs) 15 ml PRN AFTMEALHC PRN PO DYSPEPSIA 07/29/21 15:00 Magnesium Hydroxide (Milk Of Magnesia) 2,400 mg PRN QHS PRN PO CONSTIPATION 07/29/21 15:00 Acetaminophen (Tylenol) 650 mg PRN Q4HRS PRN PO MILD PAIN / TEMP > 100.3'F 07/29/21 15:45 08/01/21 08:20 Aspirin (Aspirin Enteric Coated) 81 mg DAILY PO 07/30/21 09:00 08/02/21 08:20 Donepezil HCl (Aricept) 5 mg HS PO 07/29/21 21:00 08/02/21 20:35 Levothyroxine Sodium (Synthroid) 75 mcg DAILY06 PO 07/30/21 06:00 08/02/21 06:00 Non-Formulary Medication ([place] Carbonate ) 150 mg DAILY PO 07/30/21 09:00 07/29/21 16:01 DC Non-Formulary Medication ([place] Carbonate ) 300 mg HS PO 07/29/21 21:00 UNV Non-Formulary Medication (Nifedipine (Procardia Xl)) 90 mg DAILY PO 07/30/21 09:00 07/29/21 15:51 DC Nifedipine (Procardia Xl) 90 mg DAILY PO 07/30/21 09:00 07/31/21 08:59 [place]chie Carbonate 300 mg QHS PO 07/29/21 21:00 08/02/21 20:35 Archie Carbonate 150 mg DAILY PO 07/30/21 09:00 08/02/21 08:20 Olanzapine (ZyPREXA ZYDIS) 2.5 mg PRN Q2HRS PRN PO PSYCHOSIS 07/29/21 21:30 07/30/21 00:11 Trazodone HCl (Desyrel) 50 mg PRN QHS PRN PO INSOMNIA, MAY REPEAT X1 07/29/21 21:30 UNV Nicotine (Nicoderm Cq 14mg Patch) 1 patch DAILY TD 07/30/21 11:00 08/02/21 08:21 Lorazepam (Ativan) 0.5 mg PRN Q4HRS PRN PO ANXIETY / AGITATION 07/30/21 21:45 07/31/21 21:38 Lorazepam (Ativan) 0.5 mg HS PO 08/01/21 21:00 08/02/21 20:35 Artificial Tears (Artificial Tears) 1 drop PRN Q15MIN PRN OU DRY EYE 08/01/21 11:15 08/02/21 20:46 Artificial Tears (Artificial Tears) 1 drop BID OU 08/03/21 09:00 UNV I have reviewed the current psychotropics carefully including drug interactions. Risk benefit ratio favors no change other than as noted in my dictated progress note. Diagnosis: Problems: (1) Major neurocognitive disorder (2) Impulse control disorder, unspecified (3) Anxiety disorder, unspecified (4) Bipolar disorder, current episode mixed, severe, with psychotic features AUSTEN FLETCHER MD Aug 02, 2021 21:47
[2021-08-02] MEDS: ACETAMINOPHEN 325 MG TABLET PO PRN (22:36)
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
[2021-08-03] MEDS: LEVOTHYROXINE 75 MCG TABLET PO SCH (05:50)
[2021-08-03 06:10] VITALS: BP 163/77
[2021-08-03 07:26] LABS: BASO # 0.1 x10^3/uL (0.0-0.2); BASO % 1 % (0-3); EOS # 0.4 x10^3/uL (0.0-0.7); EOS % 3 % (0-3); HEMOGLOBIN 12.3 g/dL (12.0-15.5); LYMPH # 2.4 x10^3/uL (1.0-4.8); LYMPH % 22 % (24-48); MEAN CORPUSCULAR HEMOGLOBIN 32 pg (25-35); MEAN CORPUSCULAR HGB CONC 32 g/dL (31-37); MEAN CORPUSCULAR VOLUME 99 fL (79-100); MONO # 0.9 x10^3/uL (0.0-1.1); MONO % 8 % (0-9); NEUT # 7.3 x10^3uL (1.8-7.7); NEUT % 67 % (31-73); PLATELET COUNT 194 x10^3/uL (140-400); RED BLOOD COUNT 3.86 x10^6/uL (3.50-5.40); RED CELL DISTRIBUTION WIDTH 14.1 % (11.5-14.5)
[2021-08-03 07:48] LABS: ALBUMIN 3.2 g/dL (3.4-5.0); ALBUMIN/GLOBULIN RATIO 0.9 (1.0-1.7); CALCIUM 10.4 mg/dL (8.5-10.1); GFR 53.3; MAGNESIUM 2.5 mg/dL (1.8-2.4); POTASSIUM 4.3 mmol/L (3.5-5.1); TOTAL BILIRUBIN 0.5 mg/dL (0.2-1.0); TOTAL PROTEIN 6.9 g/dL (6.4-8.2)
[2021-08-03] MEDS: ASPIRIN ENTERIC COATED 81 MG TABLET.DR. PO SCH (08:58)
[2021-08-03] MEDS: LITHIUM CARBONATE 300 MG TABLET PO SCH ×2 (08:58→20:49)
[2021-08-03] MEDS: NICOTINE 14MG PATCH. TD SCH (08:59)
[2021-08-03] MEDS: POLYVINYL ALCOHOL 1.4% OPHTH SOLUTION 15ML BOTTLE. OU SCH ×2 (09:00→20:49)
[2021-08-03] MEDS: ACETAMINOPHEN 325 MG TABLET PO PRN (15:08)
[2021-08-03 15:51] VITALS: BP 137/81
--- NOTE | 2021-08-03 17:22 | NUR ---
Nsg Note; Loraine was awake and alert this morning, enjoying spending time outside watering the flower beds. She was calm, cooperative and med compliant. This afternoon, she was medicated with Tylenol for a headache layed down for several hours. When she got up for dinner, she stated the headache is better and that she was just tired this afternoon. She is pleasant and a joie to talk with about her career, her 's career, and their world travels.
[2021-08-03] MEDS: DONEPEZIL HCL 5 MG TABLET. PO SCH (20:49)
[2021-08-03] MEDS: LORazepam 0.5 MG TABLET PO SCH (20:49)
--- NOTE | 2021-08-03 22:00 | PDOC ---
Exam Note: Isaiah Note: Please also refer to the separate dictated note~for this date of service dictated separately.~Patient seen individually. Discussed the patient with Nursing staff reviewed the chart.~Reviewed interim history and current functioning. Reviewed vital signs,~Labs/ Radiology~and current medications noted below. Continue current treatment with the changes noted in the dictated addendum note Assessment: Vital Signs/I&O: Vital Signs Date Time Temp Pulse Resp B/P (MAP) Pulse Ox O2 Delivery O2 Flow Rate FiO2 08/03/21 15:51 97.1 74 16 137/81 (99) 95 I & O 08/02/21 08/02/21 08/03/21 15:00 23:00 07:00 Intake Total 600 ml 840 ml Balance 600 ml 840 ml Labs: Laboratory Tests Test 08/03/21 07:13 White Blood Count 11.0 x10^3/uL (4.0-11.0) Red Blood Count 3.86 x10^6/uL (3.50-5.40) Hemoglobin 12.3 g/dL (12.0-15.5) Hematocrit 38.0 % (36.0-47.0) Mean Corpuscular Volume 99 fL (79-100) Mean Corpuscular Hemoglobin 32 pg (25-35) Mean Corpuscular Hemoglobin Concent 32 g/dL (31-37) Red Cell Distribution Width 14.1 % (11.5-14.5) Platelet Count 194 x10^3/uL (140-400) Neutrophils (%) (Auto) 67 % (31-73) Lymphocytes (%) (Auto) 22 % (24-48) L Monocytes (%) (Auto) 8 % (0-9) Eosinophils (%) (Auto) 3 % (0-3) Basophils (%) (Auto) 1 % (0-3) Neutrophils # (Auto) 7.3 x10^3uL (1.8-7.7) Lymphocytes # (Auto) 2.4 x10^3/uL (1.0-4.8) Monocytes # (Auto) 0.9 x10^3/uL (0.0-1.1) Eosinophils # (Auto) 0.4 x10^3/uL (0.0-0.7) Basophils # (Auto) 0.1 x10^3/uL (0.0-0.2) Sodium Level 141 mmol/L (136-145) Potassium Level 4.3 mmol/L (3.5-5.1) Chloride Level 109 mmol/L (98-107) H Carbon Dioxide Level 25 mmol/L (21-32) Anion Gap 7 (6-14) Blood Urea Nitrogen 21 mg/dL (7-20) H Creatinine 1.0 mg/dL (0.6-1.0) Estimated GFR (Cockcroft-Gault) 53.3 BUN/Creatinine Ratio 21 (6-20) H Glucose Level 91 mg/dL (70-99) Calcium Level 10.4 mg/dL (8.5-10.1) H Magnesium Level 2.5 mg/dL (1.8-2.4) H Total Bilirubin 0.5 mg/dL (0.2-1.0) Aspartate Amino Transferase (AST) 24 U/L (15-37) Alanine Aminotransferase (ALT) 33 U/L (14-59) Alkaline Phosphatase 94 U/L (46-116) Total Protein 6.9 g/dL (6.4-8.2) Albumin 3.2 g/dL (3.4-5.0) L Albumin/Globulin Ratio 0.9 (1.0-1.7) L Current Medications: Meds: Laboratory Tests Test 08/03/21 07:13 White Blood Count 11.0 x10^3/uL Red Blood Count 3.86 x10^6/uL Hemoglobin 12.3 g/dL Hematocrit 38.0 % Mean Corpuscular Volume 99 fL Mean Corpuscular Hemoglobin 32 pg Mean Corpuscular Hemoglobin Concent 32 g/dL Red Cell Distribution Width 14.1 % Platelet Count 194 x10^3/uL Neutrophils (%) (Auto) 67 % Lymphocytes (%) (Auto) 22 % Monocytes (%) (Auto) 8 % Eosinophils (%) (Auto) 3 % Basophils (%) (Auto) 1 % Neutrophils # (Auto) 7.3 x10^3uL Lymphocytes # (Auto) 2.4 x10^3/uL Monocytes # (Auto) 0.9 x10^3/uL Eosinophils # (Auto) 0.4 x10^3/uL Basophils # (Auto) 0.1 x10^3/uL Sodium Level 141 mmol/L Potassium Level 4.3 mmol/L Chloride Level 109 mmol/L Carbon Dioxide Level 25 mmol/L Anion Gap 7 Blood Urea Nitrogen 21 mg/dL Creatinine 1.0 mg/dL Estimated GFR (Cockcroft-Gault) 53.3 BUN/Creatinine Ratio 21 Glucose Level 91 mg/dL Calcium Level 10.4 mg/dL Magnesium Level 2.5 mg/dL Total Bilirubin 0.5 mg/dL Aspartate Amino Transf (AST/SGOT) 24 U/L Alanine Aminotransferase (ALT/SGPT) 33 U/L Alkaline Phosphatase 94 U/L Total Protein 6.9 g/dL Albumin 3.2 g/dL Albumin/Globulin Ratio 0.9 Current Medications Medications (Trade) Dose Ordered Sig/Miki Route PRN Reason Start Time Stop Time Status Last Admin Dose Admin Acetaminophen (Tylenol) 650 mg PRN Q6HRS PRN PO MILD PAIN / TEMP > 100.3'F 07/29/21 15:00 07/29/21 15:44 DC Multi-Ingredient Ointment (Analgesic [place]) 1 martinez PRN QID PRN TP MUSCLE PAIN 07/29/21 15:00 Al Hydroxide/Mg Hydroxide (Mylanta Plus Xs) 15 ml PRN AFTMEALHC PRN PO DYSPEPSIA 07/29/21 15:00 Magnesium Hydroxide (Milk Of Magnesia) 2,400 mg PRN QHS PRN PO CONSTIPATION 07/29/21 15:00 Acetaminophen (Tylenol) 650 mg PRN Q4HRS PRN PO MILD PAIN / TEMP > 100.3'F 07/29/21 15:45 08/03/21 15:08 Aspirin (Aspirin Enteric Coated) 81 mg DAILY PO 07/30/21 09:00 08/03/21 08:58 Donepezil HCl (Aricept) 5 mg HS PO 07/29/21 21:00 08/03/21 20:49 Levothyroxine Sodium (Synthroid) 75 mcg DAILY06 PO 07/30/21 06:00 08/03/21 05:50 Non-Formulary Medication ([place] Carbonate ) 150 mg DAILY PO 07/30/21 09:00 07/29/21 16:01 DC Non-Formulary Medication ([place] Carbonate ) 300 mg HS PO 07/29/21 21:00 UNV Non-Formulary Medication (Nifedipine (Procardia Xl)) 90 mg DAILY PO 07/30/21 09:00 07/29/21 15:51 DC Nifedipine (Procardia Xl) 90 mg DAILY PO 07/30/21 09:00 07/31/21 08:59 [place] Carbonate 300 mg QHS PO 07/29/21 21:00 08/03/21 20:49 [place] Carbonate 150 mg DAILY PO 07/30/21 09:00 08/03/21 08:58 Olanzapine (ZyPREXA ZYDIS) 2.5 mg PRN Q2HRS PRN PO PSYCHOSIS 07/29/21 21:30 07/30/21 00:11 Trazodone HCl (Desyrel) 50 mg PRN QHS PRN PO INSOMNIA, MAY REPEAT X1 07/29/21 21:30 UNV Nicotine (Nicoderm Cq 14mg Patch) 1 patch DAILY TD 07/30/21 11:00 08/03/21 08:59 Lorazepam (Ativan) 0.5 mg PRN Q4HRS PRN PO ANXIETY / AGITATION 07/30/21 21:45 07/31/21 21:38 Lorazepam (Ativan) 0.5 mg HS PO 08/01/21 21:00 08/03/21 20:49 Artificial Tears (Artificial Tears) 1 drop PRN Q15MIN PRN OU DRY EYE 08/01/21 11:15 08/02/21 20:46 Artificial Tears (Artificial Tears) 1 drop BID OU 08/03/21 09:00 08/03/21 20:49 Current Medications Medications (Trade) Dose Ordered Sig/Miki Route PRN Reason Start Time Stop Time Status Last Admin Dose Admin Artificial Tears (Artificial Tears) 1 drop BID OU 08/03/21 09:00 08/03/21 20:49 I have reviewed the current psychotropics carefully including drug interactions. Risk benefit ratio favors no change other than as noted in my dictated progress note. Diagnosis: Problems: (1) Major neurocognitive disorder (2) Impulse control disorder, unspecified (3) Anxiety disorder, unspecified (4) Bipolar disorder, current episode mixed, severe, with psychotic features AUSTEN FLETCHER MD Aug 03, 2021 22:00
--- NOTE | 2021-08-03 23:18 | NUR ---
Pt sitting in hallway socializing with peer when approached this evening. Pt calm, pleasant, and appropriate during encounter. Pt cooperative with assessment and compliant with medications administered whole. No further delusions or paranoia noted thus far this shift.
[2021-08-04] MEDS: LEVOTHYROXINE 75 MCG TABLET PO SCH (05:24)
[2021-08-04] MEDS: POLYVINYL ALCOHOL 1.4% OPHTH SOLUTION 15ML BOTTLE. OU PRN (05:33)
[2021-08-04 05:57] VITALS: BP 124/76
[2021-08-04] MEDS: NICOTINE 14MG PATCH. TD SCH (08:42)
[2021-08-04] MEDS: ASPIRIN ENTERIC COATED 81 MG TABLET.DR. PO SCH (08:43)
[2021-08-04] MEDS: LITHIUM CARBONATE 300 MG TABLET PO SCH ×2 (08:43→20:28)
[2021-08-04] MEDS: POLYVINYL ALCOHOL 1.4% OPHTH SOLUTION 15ML BOTTLE. OU SCH ×2 (08:44→20:28)
--- NOTE | 2021-08-04 15:22 | NUR ---
Attention seeking at times in am but has been calm and pleasant this afternoon. Compliant with meds and cares. Has talked with family on phone. Visits went well.
--- NOTE | 2021-08-04 15:27 | NUR ---
Pt Was perseverating on getting a hold of her caregiver in the am. Pt kept thinking her cat was about to be put to sleep. Spoke with family member on phone. was calm after that.
[2021-08-04 15:39] VITALS: BP 126/82
[2021-08-04] MEDS: LORazepam 0.5 MG TABLET PO SCH (20:28)
[2021-08-04] MEDS: DONEPEZIL HCL 5 MG TABLET. PO SCH (20:28)
--- NOTE | 2021-08-04 22:03 | PDOC ---
Exam Note: Isaiah Note: Please also refer to the separate dictated note~for this date of service dictated separately.~Patient seen individually. Discussed the patient with Nursing staff reviewed the chart.~Reviewed interim history and current functioning. Reviewed vital signs,~Labs/ Radiology~and current medications noted below. Continue current treatment with the changes noted in the dictated addendum note Assessment: Vital Signs/I&O: Vital Signs Date Time Temp Pulse Resp B/P (MAP) Pulse Ox O2 Delivery O2 Flow Rate FiO2 08/04/21 15:39 97.2 89 18 126/82 (97) 95 Room Air I & O 08/03/21 08/03/21 08/04/21 15:00 23:00 07:00 Intake Total 720 ml 480 ml Balance 720 ml 480 ml Labs: Laboratory Tests Test 08/04/21 05:36 SARS-CoV-2 (PCR) Negative (NEGATIVE) Current Medications: Meds: Laboratory Tests Test 08/04/21 05:36 Coronavirus (COVID-19)(PCR) Negative Current Medications Medications (Trade) Dose Ordered Sig/Miki Route PRN Reason Start Time Stop Time Status Last Admin Dose Admin Acetaminophen (Tylenol) 650 mg PRN Q6HRS PRN PO MILD PAIN / TEMP > 100.3'F 07/29/21 15:00 07/29/21 15:44 DC Multi-Ingredient Ointment (Analgesic [place]) 1 martinez PRN QID PRN TP MUSCLE PAIN 07/29/21 15:00 Al Hydroxide/Mg Hydroxide (Mylanta Plus Xs) 15 ml PRN AFTMEALHC PRN PO DYSPEPSIA 07/29/21 15:00 Magnesium Hydroxide (Milk Of Magnesia) 2,400 mg PRN QHS PRN PO CONSTIPATION 07/29/21 15:00 Acetaminophen (Tylenol) 650 mg PRN Q4HRS PRN PO MILD PAIN / TEMP > 100.3'F 07/29/21 15:45 08/03/21 15:08 Aspirin (Aspirin Enteric Coated) 81 mg DAILY PO 07/30/21 09:00 08/04/21 08:43 Donepezil HCl (Aricept) 5 mg HS PO 07/29/21 21:00 08/04/21 20:28 Levothyroxine Sodium (Synthroid) 75 mcg DAILY06 PO 07/30/21 06:00 08/04/21 05:24 Non-Formulary Medication ([place] Carbonate ) 150 mg DAILY PO 07/30/21 09:00 07/29/21 16:01 DC Non-Formulary Medication ([place] Carbonate ) 300 mg HS PO 07/29/21 21:00 UNV Non-Formulary Medication (Nifedipine (Procardia Xl)) 90 mg DAILY PO 07/30/21 09:00 07/29/21 15:51 DC Nifedipine (Procardia Xl) 90 mg DAILY PO 07/30/21 09:00 08/04/21 08:43 [place] Carbonate 300 mg QHS PO 07/29/21 21:00 08/04/21 20:28 [place] Carbonate 150 mg DAILY PO 07/30/21 09:00 08/04/21 08:43 Olanzapine (ZyPREXA ZYDIS) 2.5 mg PRN Q2HRS PRN PO PSYCHOSIS 07/29/21 21:30 07/30/21 00:11 Trazodone HCl (Desyrel) 50 mg PRN QHS PRN PO INSOMNIA, MAY REPEAT X1 07/29/21 21:30 UNV Nicotine (Nicoderm Cq 14mg Patch) 1 patch DAILY TD 07/30/21 11:00 08/04/21 08:42 Lorazepam (Ativan) 0.5 mg PRN Q4HRS PRN PO ANXIETY / AGITATION 07/30/21 21:45 07/31/21 21:38 Lorazepam (Ativan) 0.5 mg HS PO 08/01/21 21:00 08/04/21 20:28 Artificial Tears (Artificial Tears) 1 drop PRN Q15MIN PRN OU DRY EYE 08/01/21 11:15 08/04/21 05:33 Artificial Tears (Artificial Tears) 1 drop BID OU 08/03/21 09:00 08/04/21 20:28 I have reviewed the current psychotropics carefully including drug interactions. Risk benefit ratio favors no change other than as noted in my dictated progress note. Diagnosis: Problems: (1) Major neurocognitive disorder (2) Impulse control disorder, unspecified (3) Anxiety disorder, unspecified (4) Bipolar disorder, current episode mixed, severe, with psychotic features AUSTEN FLETCHER MD Aug 04, 2021 22:03
--- NOTE | 2021-08-04 22:12 | NUR ---
Pt sitting quietly in her room reading a magazine when approached. Pt calm, pleasant, and interactive during encounter. Pt cooperative with assessment and compliant with medications administered whole. No anxiety, delusions, or paranoia noted thus far this shift.
[2021-08-05] MEDS: LEVOTHYROXINE 75 MCG TABLET PO SCH (05:09)
[2021-08-05 06:10] VITALS: BP 149/70
[2021-08-05] MEDS: ASPIRIN ENTERIC COATED 81 MG TABLET.DR. PO SCH (09:06)
[2021-08-05] MEDS: LITHIUM CARBONATE 300 MG TABLET PO SCH ×2 (09:06→20:04)
[2021-08-05] MEDS: POLYVINYL ALCOHOL 1.4% OPHTH SOLUTION 15ML BOTTLE. OU SCH ×2 (09:06→20:04)
[2021-08-05] MEDS: NICOTINE 14MG PATCH. TD SCH (09:07)
--- NOTE | 2021-08-05 13:35 | NUR ---
Nursing note: Patient in hallway for morning medications & assessment, medications taken whole. She ambulates through the [facility] independently, has a walker that she has been refusing to use all day, staff continues to encourage her to use it. She is A/O. Patient requesting to call her [employer] that helps her at home, this nurse is awaiting permission from her DPOA. Permission was received to talk to sister Florence. Patient moved to room 205. She is currently ambulating in the [facility] interacting with peers. Will continue to monitor.
[2021-08-05 16:21] VITALS: BP 108/66
[2021-08-05] MEDS: DONEPEZIL HCL 5 MG TABLET. PO SCH (20:04)
[2021-08-05] MEDS: LORazepam 0.5 MG TABLET PO SCH (20:06)
[2021-08-05] MEDS: ACETAMINOPHEN 325 MG TABLET PO PRN (20:19)
--- NOTE | 2021-08-05 22:05 | PDOC ---
Exam Note: Isaiah Note: Please also refer to the separate dictated note~for this date of service dictated separately.~Patient seen individually. Discussed the patient with Nursing staff reviewed the chart.~Reviewed interim history and current functioning. Reviewed vital signs,~Labs/ Radiology~and current medications noted below. Continue current treatment with the changes noted in the dictated addendum note Assessment: Vital Signs/I&O: Vital Signs Date Time Temp Pulse Resp B/P (MAP) Pulse Ox O2 Delivery O2 Flow Rate FiO2 08/05/21 16:21 97.8 87 18 108/66 (80) 96 08/04/21 15:39 Room Air I & O 08/04/21 08/04/21 08/05/21 15:00 23:00 07:00 Intake Total 840 ml 360 ml Balance 840 ml 360 ml Labs: Laboratory Tests Test 08/05/21 09:30 Phosphorus Level 3.1 mg/dL (2.6-4.7) Current Medications: Meds: Laboratory Tests Test 08/05/21 09:30 Phosphorus Level 3.1 mg/dL Current Medications Medications (Trade) Dose Ordered Sig/Miki Route PRN Reason Start Time Stop Time Status Last Admin Dose Admin Acetaminophen (Tylenol) 650 mg PRN Q6HRS PRN PO MILD PAIN / TEMP > 100.3'F 07/29/21 15:00 07/29/21 15:44 DC Multi-Ingredient Ointment (Analgesic [place]) 1 martinez PRN QID PRN TP MUSCLE PAIN 07/29/21 15:00 Al Hydroxide/Mg Hydroxide (Mylanta Plus Xs) 15 ml PRN AFTMEALHC PRN PO DYSPEPSIA 07/29/21 15:00 Magnesium Hydroxide (Milk Of Magnesia) 2,400 mg PRN QHS PRN PO CONSTIPATION 07/29/21 15:00 Acetaminophen (Tylenol) 650 mg PRN Q4HRS PRN PO MILD PAIN / TEMP > 100.3'F 07/29/21 15:45 08/05/21 20:19 Aspirin (Aspirin Enteric Coated) 81 mg DAILY PO 07/30/21 09:00 08/05/21 09:06 Donepezil HCl (Aricept) 5 mg HS PO 07/29/21 21:00 08/05/21 20:04 Levothyroxine Sodium (Synthroid) 75 mcg DAILY06 PO 07/30/21 06:00 08/05/21 05:09 Non-Formulary Medication ([place] Carbonate ) 150 mg DAILY PO 07/30/21 09:00 07/29/21 16:01 DC Non-Formulary Medication ([place] Carbonate ) 300 mg HS PO 07/29/21 21:00 UNV Non-Formulary Medication (Nifedipine (Procardia Xl)) 90 mg DAILY PO 07/30/21 09:00 07/29/21 15:51 DC Nifedipine (Procardia Xl) 90 mg DAILY PO 07/30/21 09:00 08/05/21 09:06 [place] Carbonate 300 mg QHS PO 07/29/21 21:00 08/05/21 20:04 [place] Carbonate 150 mg DAILY PO 07/30/21 09:00 08/05/21 09:06 Olanzapine (ZyPREXA ZYDIS) 2.5 mg PRN Q2HRS PRN PO PSYCHOSIS 07/29/21 21:30 07/30/21 00:11 Trazodone HCl (Desyrel) 50 mg PRN QHS PRN PO INSOMNIA, MAY REPEAT X1 07/29/21 21:30 UNV Nicotine (Nicoderm Cq 14mg Patch) 1 patch DAILY TD 07/30/21 11:00 08/05/21 09:07 Lorazepam (Ativan) 0.5 mg PRN Q4HRS PRN PO ANXIETY / AGITATION 07/30/21 21:45 07/31/21 21:38 Lorazepam (Ativan) 0.5 mg HS PO 08/01/21 21:00 08/05/21 20:06 Artificial Tears (Artificial Tears) 1 drop PRN Q15MIN PRN OU DRY EYE 08/01/21 11:15 08/04/21 05:33 Artificial Tears (Artificial Tears) 1 drop BID OU 08/03/21 09:00 08/05/21 20:04 I have reviewed the current psychotropics carefully including drug interactions. Risk benefit ratio favors no change other than as noted in my dictated progress note. Diagnosis: Problems: (1) Major neurocognitive disorder (2) Impulse control disorder, unspecified (3) Anxiety disorder, unspecified (4) Bipolar disorder, current episode mixed, severe, with psychotic features AUSTEN FLETCHER MD Aug 05, 2021 22:05
--- NOTE | 2021-08-06 04:00 | NUR ---
Nursing Note The patient was located in the room for her assessment and medication pass. The patient was very pleasant during interactions with this nurse. The patient took her medication whole. The patient discussed her family history with this nurse. The patient was alert to name, date and location. The patient is currently sleeping in her room.
[2021-08-06] MEDS: LEVOTHYROXINE 75 MCG TABLET PO SCH (06:03)
[2021-08-06 06:19] VITALS: BP 121/72
[2021-08-06] MEDS: POLYVINYL ALCOHOL 1.4% OPHTH SOLUTION 15ML BOTTLE. OU SCH ×2 (08:01→21:14)
[2021-08-06] MEDS: ASPIRIN ENTERIC COATED 81 MG TABLET.DR. PO SCH (08:01)
[2021-08-06] MEDS: LITHIUM CARBONATE 300 MG TABLET PO SCH ×2 (08:02→21:14)
[2021-08-06] MEDS: NICOTINE 14MG PATCH. TD SCH (08:02)
--- NOTE | 2021-08-06 10:13 | NUR ---
Nursing note: Patient in dinning room for morning medications & assessment, medications taken whole. She ambulates through the [facility] independently, has a walker that she use with encouragement. She is A/O X3, not to situation. Patient is friendly, calm, interacts with peers, & staff. She is currently sitting on her bed reading a magazine. Will continue to monitor.
--- NOTE | 2021-08-06 11:14 | PDOC ---
Exam Note: Isaiah Note: This note is a late entry for 08/02/2021 covers elements not covered in my initial note. Subjective: The patient was reviewed on telehealth rounds in the evening of 08/02/2021 because of the COVID-19 pandemic and my own ill health and restrictions to be on the unit consequent to this with Yvonne VICTORIA, discussed and reviewed the chart. The patient slept 6 hours previous night. Overall the patient is doing reasonably well. She was quite obsessive about wanting Refresh eye drops and I discussed this with Yvonne RN. Patients lithium level is therapeutic and she is tolerating the 0.5 mg h.s. Ativan which she had been taking even prior to admission. Review of Systems: Impaired ambulation. No CV, , pulmonary, eye system symptoms on review. Mental Status Exam: The patient is oriented to herself and situation. Speech coherent, has some latency. Abstraction fair. Computation impaired. Language function intact. Attention span short. Mood and affect somewhat anxious. During the individual visit, we addressed her possible moving to the [place] area to be closer to her daughter and she is quite clear she wants to do this. She is quite coherent when discussing this and somewhat anxious. No suicidal or homicidal ideation. Laboratory Data: Reviewed. Impression: Bipolar 1 disorder mixed with psychotic features. Mild cognitive impairment. Anxiety disorder unspecified. Impulse control disorder unspecified. Plan: Continue current psychotropics. Assessment: Vital Signs/I&O: Vital Signs Date Time Temp Pulse Resp B/P (MAP) Pulse Ox O2 Delivery O2 Flow Rate FiO2 08/06/21 08:06 79 121/72 08/06/21 06:19 98.0 22 96 08/04/21 15:39 Room Air I & O 08/05/21 08/05/21 08/06/21 14:59 22:59 06:59 Intake Total 960 ml 480 ml Balance 960 ml 480 ml Current Medications: Meds: Current Medications Medications (Trade) Dose Ordered Sig/Miki Route PRN Reason Start Time Stop Time Status Last Admin Dose Admin Acetaminophen (Tylenol) 650 mg PRN Q6HRS PRN PO MILD PAIN / TEMP > 100.3'F 07/29/21 15:00 07/29/21 15:44 DC Multi-Ingredient Ointment (Analgesic [place]) 1 martinez PRN QID PRN TP MUSCLE PAIN 07/29/21 15:00 Al Hydroxide/Mg Hydroxide (Mylanta Plus Xs) 15 ml PRN AFTMEALHC PRN PO DYSPEPSIA 07/29/21 15:00 Magnesium Hydroxide (Milk Of Magnesia) 2,400 mg PRN QHS PRN PO CONSTIPATION 07/29/21 15:00 Acetaminophen (Tylenol) 650 mg PRN Q4HRS PRN PO MILD PAIN / TEMP > 100.3'F 07/29/21 15:45 08/05/21 20:19 Aspirin (Aspirin Enteric Coated) 81 mg DAILY PO 07/30/21 09:00 08/06/21 08:01 Donepezil HCl (Aricept) 5 mg HS PO 07/29/21 21:00 08/05/21 20:04 Levothyroxine Sodium (Synthroid) 75 mcg DAILY06 PO 07/30/21 06:00 08/06/21 06:03 Non-Formulary Medication ([place] Carbonate ) 150 mg DAILY PO 07/30/21 09:00 07/29/21 16:01 DC Non-Formulary Medication ([place] Carbonate ) 300 mg HS PO 07/29/21 21:00 UNV Non-Formulary Medication (Nifedipine (Procardia Xl)) 90 mg DAILY PO 07/30/21 09:00 07/29/21 15:51 DC Nifedipine (Procardia Xl) 90 mg DAILY PO 07/30/21 09:00 08/05/21 09:06 [place] Carbonate 300 mg QHS PO 07/29/21 21:00 08/05/21 20:04 [place] Carbonate 150 mg DAILY PO 07/30/21 09:00 08/06/21 08:02 Olanzapine (ZyPREXA ZYDIS) 2.5 mg PRN Q2HRS PRN PO PSYCHOSIS 07/29/21 21:30 07/30/21 00:11 Trazodone HCl (Desyrel) 50 mg PRN QHS PRN PO INSOMNIA, MAY REPEAT X1 07/29/21 21:30 UNV Nicotine (Nicoderm Cq 14mg Patch) 1 patch DAILY TD 07/30/21 11:00 08/06/21 08:02 Lorazepam (Ativan) 0.5 mg PRN Q4HRS PRN PO ANXIETY / AGITATION 07/30/21 21:45 07/31/21 21:38 Lorazepam (Ativan) 0.5 mg HS PO 08/01/21 21:00 08/05/21 20:06 Artificial Tears (Artificial Tears) 1 drop PRN Q15MIN PRN OU DRY EYE 08/01/21 11:15 08/04/21 05:33 Artificial Tears (Artificial Tears) 1 drop BID OU 08/03/21 09:00 08/06/21 08:01 I have reviewed the current psychotropics carefully including drug interactions. Risk benefit ratio favors no change other than as noted in my dictated progress note. Diagnosis: Problems: (1) Impulse control disorder, unspecified (2) Anxiety disorder, unspecified (3) Bipolar disorder, current episode mixed, severe, with psychotic features AUSTEN FLETCHER MD Aug 06, 2021 11:14
--- NOTE | 2021-08-06 11:15 | PDOC ---
Exam Note: Isaiah Note: This note is a late entry for 08/03/2021 covers elements not covered in my initial note. Subjective: The patient was seen individually in the evening of 08/03/2021 with Yvonne VICTORIA, discussed and reviewed the chart. The patient slept 7-1/4 hours previous night. She did well in the morning, cooperative. She went out to sit in the patio during the afternoon. She does complain of headaches. Previous night she was somewhat delusional that her caregivers were stealing things from her but that was not evident during the day today. She is still obsessing about getting refreshed again. She is aware she will be moving closer to her daughter and we addressed this at some length. Review of Systems: Impaired ambulation. No CV, , pulmonary, eye system symptoms on review. Mental Status Exam: The patient is oriented to herself and situation. Speech coherent, has some latency. Abstraction fair. Computation impaired. Language function intact. Attention span short. Mood and affect anxious. Laboratory Data: Reviewed. Impression: Bipolar 1 disorder mixed with psychotic features. Mild cognitive impairment. Anxiety disorder unspecified. Impulse control disorder unspecified. Plan: Continue current psychotropics. Assessment: Vital Signs/I&O: Vital Signs Date Time Temp Pulse Resp B/P (MAP) Pulse Ox O2 Delivery O2 Flow Rate FiO2 08/06/21 08:06 79 121/72 08/06/21 06:19 98.0 22 96 08/04/21 15:39 Room Air I & O 08/05/21 08/05/21 08/06/21 14:59 22:59 06:59 Intake Total 960 ml 480 ml Balance 960 ml 480 ml Current Medications: Meds: Current Medications Medications (Trade) Dose Ordered Sig/Miki Route PRN Reason Start Time Stop Time Status Last Admin Dose Admin Acetaminophen (Tylenol) 650 mg PRN Q6HRS PRN PO MILD PAIN / TEMP > 100.3'F 07/29/21 15:00 07/29/21 15:44 DC Multi-Ingredient Ointment (Analgesic [place]) 1 martinez PRN QID PRN TP MUSCLE PAIN 07/29/21 15:00 Al Hydroxide/Mg Hydroxide (Mylanta Plus Xs) 15 ml PRN AFTMEALHC PRN PO DYSPEPSIA 07/29/21 15:00 Magnesium Hydroxide (Milk Of Magnesia) 2,400 mg PRN QHS PRN PO CONSTIPATION 07/29/21 15:00 Acetaminophen (Tylenol) 650 mg PRN Q4HRS PRN PO MILD PAIN / TEMP > 100.3'F 07/29/21 15:45 08/05/21 20:19 Aspirin (Aspirin Enteric Coated) 81 mg DAILY PO 07/30/21 09:00 08/06/21 08:01 Donepezil HCl (Aricept) 5 mg HS PO 07/29/21 21:00 08/05/21 20:04 Levothyroxine Sodium (Synthroid) 75 mcg DAILY06 PO 07/30/21 06:00 08/06/21 06:03 Non-Formulary Medication ([place] Carbonate ) 150 mg DAILY PO 07/30/21 09:00 07/29/21 16:01 DC Non-Formulary Medication ([place] Carbonate ) 300 mg HS PO 07/29/21 21:00 UNV Non-Formulary Medication (Nifedipine (Procardia Xl)) 90 mg DAILY PO 07/30/21 09:00 07/29/21 15:51 DC Nifedipine (Procardia Xl) 90 mg DAILY PO 07/30/21 09:00 08/05/21 09:06 [place] Carbonate 300 mg QHS PO 07/29/21 21:00 08/05/21 20:04 [place] Carbonate 150 mg DAILY PO 07/30/21 09:00 08/06/21 08:02 Olanzapine (ZyPREXA ZYDIS) 2.5 mg PRN Q2HRS PRN PO PSYCHOSIS 07/29/21 21:30 07/30/21 00:11 Trazodone HCl (Desyrel) 50 mg PRN QHS PRN PO INSOMNIA, MAY REPEAT X1 07/29/21 21:30 UNV Nicotine (Nicoderm Cq 14mg Patch) 1 patch DAILY TD 07/30/21 11:00 08/06/21 08:02 Lorazepam (Ativan) 0.5 mg PRN Q4HRS PRN PO ANXIETY / AGITATION 07/30/21 21:45 07/31/21 21:38 Lorazepam (Ativan) 0.5 mg HS PO 08/01/21 21:00 08/05/21 20:06 Artificial Tears (Artificial Tears) 1 drop PRN Q15MIN PRN OU DRY EYE 08/01/21 11:15 08/04/21 05:33 Artificial Tears (Artificial Tears) 1 drop BID OU 08/03/21 09:00 08/06/21 08:01 I have reviewed the current psychotropics carefully including drug interactions. Risk benefit ratio favors no change other than as noted in my dictated progress note. Diagnosis: Problems: (1) Impulse control disorder, unspecified (2) Anxiety disorder, unspecified (3) Bipolar disorder, current episode mixed, severe, with psychotic features AUSTEN FLETCHER MD Aug 06, 2021 11:15
--- NOTE | 2021-08-06 11:28 | PDOC ---
Exam Note: Isaiah Note: This note is a late entry for 08/04/2021 covers elements not covered in my initial note. Subjective: The patient was seen individually in the evening of 08/04/2021 with Yvonne VICTORIA, discussed and reviewed the chart. The patient slept 6-3/4 hours previous night. She was anxious in the morning but better in the afternoon. Review of Systems: Impaired ambulation. No CV, , pulmonary, eye system symptoms on review. Mental Status Exam: The patient is oriented to herself and situation. I met with her individually. We had a lengthy discussion about transitioning closer to her daughter in the [place] area and she is concerned about how she would sell her home and we addressed how her daughter would assist with this. She raised her daughter well and it was time for the daughter to step in and assist her and she was very appreciative of the feedback. She is quite coherent, lucid, less manic. Speech coherent. Abstraction fair. Computation impaired. Language function intact. Attention span short. Mood and affect anxious. Laboratory Data: Reviewed. [place] level therapeutic at 0.9. Impression: Bipolar 1 disorder mixed with psychotic features. Mild cognitive impairment. Anxiety disorder unspecified. Impulse control disorder unspecified. Plan: Continue current psychotropics. Assessment: Vital Signs/I&O: Vital Signs Date Time Temp Pulse Resp B/P (MAP) Pulse Ox O2 Delivery O2 Flow Rate FiO2 08/06/21 08:06 79 121/72 08/06/21 06:19 98.0 22 96 08/04/21 15:39 Room Air I & O 08/05/21 08/05/21 08/06/21 15:00 23:00 07:00 Intake Total 960 ml 480 ml Balance 960 ml 480 ml Current Medications: Meds: Current Medications Medications (Trade) Dose Ordered Sig/Miki Route PRN Reason Start Time Stop Time Status Last Admin Dose Admin Acetaminophen (Tylenol) 650 mg PRN Q6HRS PRN PO MILD PAIN / TEMP > 100.3'F 07/29/21 15:00 07/29/21 15:44 DC Multi-Ingredient Ointment (Analgesic [place]) 1 martinez PRN QID PRN TP MUSCLE PAIN 07/29/21 15:00 Al Hydroxide/Mg Hydroxide (Mylanta Plus Xs) 15 ml PRN AFTMEALHC PRN PO DYSPEPSIA 07/29/21 15:00 Magnesium Hydroxide (Milk Of Magnesia) 2,400 mg PRN QHS PRN PO CONSTIPATION 07/29/21 15:00 Acetaminophen (Tylenol) 650 mg PRN Q4HRS PRN PO MILD PAIN / TEMP > 100.3'F 07/29/21 15:45 08/05/21 20:19 Aspirin (Aspirin Enteric Coated) 81 mg DAILY PO 07/30/21 09:00 08/06/21 08:01 Donepezil HCl (Aricept) 5 mg HS PO 07/29/21 21:00 08/05/21 20:04 Levothyroxine Sodium (Synthroid) 75 mcg DAILY06 PO 07/30/21 06:00 08/06/21 06:03 Non-Formulary Medication ([place] Carbonate ) 150 mg DAILY PO 07/30/21 09:00 07/29/21 16:01 DC Non-Formulary Medication ([place] Carbonate ) 300 mg HS PO 07/29/21 21:00 UNV Non-Formulary Medication (Nifedipine (Procardia Xl)) 90 mg DAILY PO 07/30/21 09:00 07/29/21 15:51 DC Nifedipine (Procardia Xl) 90 mg DAILY PO 07/30/21 09:00 08/05/21 09:06 [place] Carbonate 300 mg QHS PO 07/29/21 21:00 08/05/21 20:04 [place] Carbonate 150 mg DAILY PO 07/30/21 09:00 08/06/21 08:02 Olanzapine (ZyPREXA ZYDIS) 2.5 mg PRN Q2HRS PRN PO PSYCHOSIS 07/29/21 21:30 07/30/21 00:11 Trazodone HCl (Desyrel) 50 mg PRN QHS PRN PO INSOMNIA, MAY REPEAT X1 07/29/21 21:30 UNV Nicotine (Nicoderm Cq 14mg Patch) 1 patch DAILY TD 07/30/21 11:00 08/06/21 08:02 Lorazepam (Ativan) 0.5 mg PRN Q4HRS PRN PO ANXIETY / AGITATION 07/30/21 21:45 07/31/21 21:38 Lorazepam (Ativan) 0.5 mg HS PO 08/01/21 21:00 08/05/21 20:06 Artificial Tears (Artificial Tears) 1 drop PRN Q15MIN PRN OU DRY EYE 08/01/21 11:15 08/04/21 05:33 Artificial Tears (Artificial Tears) 1 drop BID OU 08/03/21 09:00 08/06/21 08:01 I have reviewed the current psychotropics carefully including drug interactions. Risk benefit ratio favors no change other than as noted in my dictated progress note. Diagnosis: Problems: (1) Major neurocognitive disorder (2) Impulse control disorder, unspecified (3) Anxiety disorder, unspecified (4) Bipolar disorder, current episode mixed, severe, with psychotic features AUSTEN FLETCHER MD Aug 06, 2021 11:28
--- NOTE | 2021-08-06 11:44 | PDOC ---
Exam Note: Isaiah Note: This note is a late entry for 08/05/2021 covers elements not covered in my initial note. Subjective: The patient was seen individually in the evening of 08/05/2021 with Ramsey VICTORIA, discussed and reviewed the chart. The patient slept 7 hours previous night. Overall she has been appropriate. I met with her in her room at some length. She is very appreciative of her care here. She will be going back with her daughter to the [facility]. Review of Systems: Impaired ambulation. No CV, , pulmonary, eye system symptoms on review. Mental Status Exam: The patient is oriented to herself and situation. She is quite verbal, interactive. Speech coherent. Abstraction fair. Computation i mpaired. Language function intact. Attention span short. Mood and affect improved, less manic. No suicidal or homicidal ideation. She is less obsessed about stressors of selling her home and she accepts her daughter will help her. Laboratory Data: Reviewed. Impression: Bipolar 1 disorder mixed with psychotic features. Mild cognitive impairment. Anxiety disorder unspecified. Impulse control disorder unspecified. Plan: Continue current psychotropics. Assessment: Vital Signs/I&O: Vital Signs Date Time Temp Pulse Resp B/P (MAP) Pulse Ox O2 Delivery O2 Flow Rate FiO2 08/06/21 08:06 79 121/72 08/06/21 06:19 98.0 22 96 08/04/21 15:39 Room Air I & O 08/05/21 08/05/21 08/06/21 15:00 23:00 07:00 Intake Total 960 ml 480 ml Balance 960 ml 480 ml Current Medications: Meds: Current Medications Medications (Trade) Dose Ordered Sig/Miki Route PRN Reason Start Time Stop Time Status Last Admin Dose Admin Acetaminophen (Tylenol) 650 mg PRN Q6HRS PRN PO MILD PAIN / TEMP > 100.3'F 07/29/21 15:00 07/29/21 15:44 DC Multi-Ingredient Ointment (Analgesic [place]) 1 martinez PRN QID PRN TP MUSCLE PAIN 07/29/21 15:00 Al Hydroxide/Mg Hydroxide (Mylanta Plus Xs) 15 ml PRN AFTMEALHC PRN PO DYSPEPSIA 07/29/21 15:00 Magnesium Hydroxide (Milk Of Magnesia) 2,400 mg PRN QHS PRN PO CONSTIPATION 07/29/21 15:00 Acetaminophen (Tylenol) 650 mg PRN Q4HRS PRN PO MILD PAIN / TEMP > 100.3'F 07/29/21 15:45 08/05/21 20:19 Aspirin (Aspirin Enteric Coated) 81 mg DAILY PO 07/30/21 09:00 08/06/21 08:01 Donepezil HCl (Aricept) 5 mg HS PO 07/29/21 21:00 08/05/21 20:04 Levothyroxine Sodium (Synthroid) 75 mcg DAILY06 PO 07/30/21 06:00 08/06/21 06:03 Non-Formulary Medication ([place] Carbonate ) 150 mg DAILY PO 07/30/21 09:00 07/29/21 16:01 DC Non-Formulary Medication ([place] Carbonate ) 300 mg HS PO 07/29/21 21:00 UNV Non-Formulary Medication (Nifedipine (Procardia Xl)) 90 mg DAILY PO 07/30/21 09:00 07/29/21 15:51 DC Nifedipine (Procardia Xl) 90 mg DAILY PO 07/30/21 09:00 08/05/21 09:06 [place] Carbonate 300 mg QHS PO 07/29/21 21:00 08/05/21 20:04 [place] Carbonate 150 mg DAILY PO 07/30/21 09:00 08/06/21 08:02 Olanzapine (ZyPREXA ZYDIS) 2.5 mg PRN Q2HRS PRN PO PSYCHOSIS 07/29/21 21:30 07/30/21 00:11 Trazodone HCl (Desyrel) 50 mg PRN QHS PRN PO INSOMNIA, MAY REPEAT X1 07/29/21 21:30 UNV Nicotine (Nicoderm Cq 14mg Patch) 1 patch DAILY TD 07/30/21 11:00 08/06/21 08:02 Lorazepam (Ativan) 0.5 mg PRN Q4HRS PRN PO ANXIETY / AGITATION 07/30/21 21:45 07/31/21 21:38 Lorazepam (Ativan) 0.5 mg HS PO 08/01/21 21:00 08/05/21 20:06 Artificial Tears (Artificial Tears) 1 drop PRN Q15MIN PRN OU DRY EYE 08/01/21 11:15 08/04/21 05:33 Artificial Tears (Artificial Tears) 1 drop BID OU 08/03/21 09:00 08/06/21 08:01 I have reviewed the current psychotropics carefully including drug interactions. Risk benefit ratio favors no change other than as noted in my dictated progress note. Diagnosis: Problems: (1) Major neurocognitive disorder (2) Impulse control disorder, unspecified (3) Anxiety disorder, unspecified (4) Bipolar disorder, current episode mixed, severe, with psychotic features AUSTEN FLETCHER MD Aug 06, 2021 11:44
--- NOTE | 2021-08-06 12:59 | NUR ---
WEEKLY ACTIVITY THERAPY NOTE Date of Admission: 07/29/2021 Date of AT Assessment: 08/01 Precipitating behaviors that initiated intake and admission: EMS found gas stove on in the home, food & cat feces scattered on floor, AMS, psychosis, self care failure, unsafe at home, delusions, pt found outside her home on the ground in hot weather, seeing policemen, fear of ending up in long-term, paranoid Goal aimed: increase stress management and relaxation skills Initial Goal: Pt will participate in at least five individual or group Activity Therapy sessions per week Weekly progress towards goal: 3/4 Group participation level: 1 min, 1 full, 1:1 Weekly highlights: ate garden fruit and chatted with AT Friday morning Behaviors observed: pleasant and calm Plan: no change to goal Beneficial adaptations: socialization and encouragement
--- NOTE | 2021-08-06 13:36 | NUR ---
Treatment team update: Pt dtr, Nandini, participated in treatment team via phone. Pt is eating between 75-100% of meals and sleeping on average 6.5 hours per night. Pt is pleasant, calm and cooperative with staff direction/cares. Pt is mostly medication compliant; however, does have some apprehension about taking her BP meds stating "the doctor said I didn't have to take these". Pt was A/O x1 yesterday but more A/O x3 today; pt also needs reminders at times to not walk away from her RW, which physical therapy has recommended that she uses. Pt has attended 3 groups this week and really liked being outside for the gardening activity. Pt dtr addressed her concerns about pt and the plan at this time is to allow pt to discharge home with caregiver services and give pt the opportunity to pack herself as a means to give her a sense of autonomy. Pt will plan to discharge towards the middle of next week.
--- NOTE | 2021-08-06 14:18 | TX PLAN ---
Interdisciplinary Tx Plan Admission Information Jul 29, 2021 at 12:30 Legal Status (on Admission): Voluntary DPOA/Guardian Name: Nandini Goldberg Contact Other Contact Verified Code Status: DNR Allergies: Coded Allergies: ciprofloxacin (Verified Allergy, Unknown, 07/29/21) trazodone (Verified Allergy, Unknown, 07/29/21) Diagnoses Primary Diagnosis: Delirium superimposed on neurocognitive D/O Reasons for Admission: Delusions, Suspicious/paranoid, Confusion/Disoriented, Other Problem in Patient's Words: When she's off her meds she's not stable; "my mother is in denial about being diagnosed with Dementia" Additional Admission Comments: According to the intake, EMS came to the home and found the gas stove on, food and cat feces were scattered on the floor. Pt is having psychosis, poor self-care, unsafe, delusional, paranoid, found outside her home on the ground in hot weather. Problems Active Problems: Confused Medication compliant Inactive Problems: None Pt Strengths/Limitations Ability for [place]: Fair Cognitive Functioning/Ability: Fair Communication Skills/Ability: Fair Financial Resources: Fair Insight/Judgement: Poor Intellectual Ability: Fair Physical Health: Fair Social Skills: Fair Stability in Family: Good Stability in School/Work: Fair Verbal Skills: Good Discharge Criteria Discharge Criteria: No need for close observ., Adequate arrangements @DC, Improved behavior, Improved mood/thought Preliminary Discharge Plan Preliminary DC Plan: Placement Needed Special Precautions Fall Risk: Moderate Initial D/C Plan Pt may return home; consider referrals to higher level of care Identified Discharge Needs: Referrals to higher level of care Currently Utilized Resources Currently Utilized Resources/P: Primary Care Physician Identified Problems/Hx/Goals Objectives/Short-Term Goals Short Term Goals: Dec. Hallucination/Delus, Medication Stabilization, Monitor Med Effects, Promote Coping Skill Short Term Goals in Patient's: N/A Interventions/Frequency Staff Interventions/Frequency&: Psychiatrist to assess pt at least 3x per week for medication management. Social Work to assess pt at least 2x per week to identify barriers to care and discharge planning goals. Nursing to assess medication effects, behavior modification and complete 15 minute checks daily. Encourage participation in group activities (if applicable) or 1:1 engagement based off activity dept goals. 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 Community Follow-up Primary Care Physician Possible referral to higher level of care. Treatment Plan Explained Patient/Railcar Carpenter had this treatment plan explained to him/her as indicated by the signature below and has been given the opportunity to ask questions and make suggestions: Date: Patient/Railcar Carpenter Signature: Patient/Railcar Carpenter Decline: No (Pt dtr is active in pt care.) Status Update Update This is pt 2nd treatment team; her first team being Jul.30. Pt dtr, Nandini, participated in treatment team via phone. Pt is eating between 75-100% of meals and sleeping on average 6.5 hours per night. Pt is pleasant, calm and cooperative with staff direction/cares. Pt is mostly medication compliant; however, does have some apprehension about taking her BP meds stating "the doctor said I didn't have to take these". Pt was A/O x1 yesterday but more A/O x3 today; pt also needs reminders at times to not walk away from her RW, which physical therapy has recommended that she uses. Pt has attended 3 groups this week and really liked being outside for the gardening activity. Pt dtr addre ssed her concerns about pt and the plan at this time is to allow pt to discharge home with caregiver services and give pt the opportunity to pack herself as a means to give her a sense of autonomy. Pt will plan to discharge towards the middle of next week. MARLY NOVAK Aug 06, 2021 14:18
[2021-08-06] MEDS: ACETAMINOPHEN 325 MG TABLET PO PRN (14:40)
[2021-08-06 15:43] VITALS: BP 147/68
[2021-08-06] MEDS: MIRTAZAPINE 7.5 MG TABLET. PO SCH (21:14)
[2021-08-06] MEDS: LORazepam 0.5 MG TABLET PO SCH (21:14)
[2021-08-06] MEDS: DONEPEZIL HCL 5 MG TABLET. PO SCH (21:14)
--- NOTE | 2021-08-06 21:53 | PDOC ---
Exam Note: Isaiah Note: Please also refer to the separate dictated note~for this date of service dictated separately.~Patient seen individually. Discussed the patient with Nursing staff reviewed the chart.~Reviewed interim history and current functioning. Reviewed vital signs,~Labs/ Radiology~and current medications noted below. Continue current treatment with the changes noted in the dictated addendum note Assessment: Vital Signs/I&O: Vital Signs Date Time Temp Pulse Resp B/P (MAP) Pulse Ox O2 Delivery O2 Flow Rate FiO2 08/06/21 15:43 97.2 75 19 147/68 (94) 96 Room Air I & O 08/05/21 08/05/21 08/06/21 15:00 23:00 07:00 Intake Total 960 ml 480 ml Balance 960 ml 480 ml Current Medications: Meds: Current Medications Medications (Trade) Dose Ordered Sig/Miki Route PRN Reason Start Time Stop Time Status Last Admin Dose Admin Acetaminophen (Tylenol) 650 mg PRN Q6HRS PRN PO MILD PAIN / TEMP > 100.3'F 07/29/21 15:00 07/29/21 15:44 DC Multi-Ingredient Ointment (Analgesic [place]) 1 martinez PRN QID PRN TP MUSCLE PAIN 07/29/21 15:00 Al Hydroxide/Mg Hydroxide (Mylanta Plus Xs) 15 ml PRN AFTMEALHC PRN PO DYSPEPSIA 07/29/21 15:00 Magnesium Hydroxide (Milk Of Magnesia) 2,400 mg PRN QHS PRN PO CONSTIPATION 07/29/21 15:00 Acetaminophen (Tylenol) 650 mg PRN Q4HRS PRN PO MILD PAIN / TEMP > 100.3'F 07/29/21 15:45 08/06/21 14:40 Aspirin (Aspirin Enteric Coated) 81 mg DAILY PO 07/30/21 09:00 08/06/21 08:01 Donepezil HCl (Aricept) 5 mg HS PO 07/29/21 21:00 08/06/21 21:14 Levothyroxine Sodium (Synthroid) 75 mcg DAILY06 PO 07/30/21 06:00 08/06/21 06:03 Non-Formulary Medication ([place] Carbonate ) 150 mg DAILY PO 07/30/21 09:00 07/29/21 16:01 DC Non-Formulary Medication ([place] Carbonate ) 300 mg HS PO 07/29/21 21:00 UNV Non-Formulary Medication (Nifedipine (Procardia Xl)) 90 mg DAILY PO 07/30/21 09:00 07/29/21 15:51 DC Nifedipine (Procardia Xl) 90 mg DAILY PO 07/30/21 09:00 08/05/21 09:06 [place] Carbonate 300 mg QHS PO 07/29/21 21:00 08/06/21 21:14 [place] Carbonate 150 mg DAILY PO 07/30/21 09:00 08/06/21 08:02 Olanzapine (ZyPREXA ZYDIS) 2.5 mg PRN Q2HRS PRN PO PSYCHOSIS 07/29/21 21:30 07/30/21 00:11 Trazodone HCl (Desyrel) 50 mg PRN QHS PRN PO INSOMNIA, MAY REPEAT X1 07/29/21 21:30 UNV Nicotine (Nicoderm Cq 14mg Patch) 1 patch DAILY TD 07/30/21 11:00 08/06/21 08:02 Lorazepam (Ativan) 0.5 mg PRN Q4HRS PRN PO ANXIETY / AGITATION 07/30/21 21:45 07/31/21 21:38 Lorazepam (Ativan) 0.5 mg HS PO 08/01/21 21:00 08/06/21 21:14 Artificial Tears (Artificial Tears) 1 drop PRN Q15MIN PRN OU DRY EYE 08/01/21 11:15 08/04/21 05:33 Artificial Tears (Artificial Tears) 1 drop BID OU 08/03/21 09:00 08/06/21 21:14 Mirtazapine (Remeron) 7.5 mg QHS PO 08/06/21 21:00 08/06/21 21:14 Current Medications Medications (Trade) Dose Ordered Sig/Miki Route PRN Reason Start Time Stop Time Status Last Admin Dose Admin Mirtazapine (Remeron) 7.5 mg QHS PO 08/06/21 21:00 08/06/21 21:14 I have reviewed the current psychotropics carefully including drug interactions. Risk benefit ratio favors no change other than as noted in my dictated progress note. Diagnosis: Problems: (1) Major neurocognitive disorder (2) Impulse control disorder, unspecified (3) Anxiety disorder, unspecified (4) Bipolar disorder, current episode mixed, severe, with psychotic features CHANCE,MAN M MD Aug 06, 2021 21:53
--- NOTE | 2021-08-07 01:59 | NUR ---
Nursing Note The patient was located in her room for her assessment and medication pass. The patient was alert to name, date and location. The patient took her medication whole. The patient was a little irritable during her assessment but once this nurse explained reasoning for the assessment questions the patient was less irritable. The patient is currently sleeping in her room.
[2021-08-07] MEDS: LEVOTHYROXINE 75 MCG TABLET PO SCH (05:56)
[2021-08-07 06:06] VITALS: BP 135/80
[2021-08-07] MEDS: LITHIUM CARBONATE 300 MG TABLET PO SCH ×2 (08:24→20:49)
[2021-08-07] MEDS: ASPIRIN ENTERIC COATED 81 MG TABLET.DR. PO SCH (08:24)
[2021-08-07] MEDS: POLYVINYL ALCOHOL 1.4% OPHTH SOLUTION 15ML BOTTLE. OU SCH ×2 (08:24→20:53)
[2021-08-07] MEDS: NICOTINE 14MG PATCH. TD SCH (08:27)
[2021-08-07] MEDS: ACETAMINOPHEN 325 MG TABLET PO PRN (08:29)
--- NOTE | 2021-08-07 09:47 | NUR ---
SW attempted to contact pt dtr, Nandini, who asked SW to call back as she was on the phone with pt.
--- NOTE | 2021-08-07 10:24 | NUR ---
SW received call from Nandini who discussed pt upset about her discharge plan and stated that the doctor told her she could go at anytime. Pt dtr and SW went over the discharge potential for Friday as her caregiver may not be able to pick her up before that time. Pt has placement at an [facility] in [place] close to her dtr and will discharge home with caregiver services until she can make the trip to get pt moved. Pt dtr went over medications and questioned if pt could get a 60 day script to aid in the transition to [place]. Pt dtr is also requesting that pt continue the Nicotine patches at discharge to get pt to stop smoking if possible. SW will follow up with the psychiatrist and get back to her on this. SW did recommend that pt continue with PT/OT at the AL facility and can make sure it is on paper for continuum of care. Pt facility is called [facility] in [place], [place]. They may reach out to for records and help tie up any loose ends to complete the transition to AL for pt.
[2021-08-07 16:14] VITALS: BP 120/63
--- NOTE | 2021-08-07 17:37 | NUR ---
Nsg note; Loraine has been calm, quiet and cooperative today, taking her meds without difficulty. she is awake and alert through the day, spending time in the [facility] or dayroom between meals, sitting with peers.
[2021-08-07] MEDS: DONEPEZIL HCL 5 MG TABLET. PO SCH (20:50)
[2021-08-07] MEDS: MIRTAZAPINE 7.5 MG TABLET. PO SCH (20:50)
[2021-08-07] MEDS: LORazepam 0.5 MG TABLET PO SCH (20:51)
--- NOTE | 2021-08-07 22:40 | PDOC ---
Exam Note: Isaiah Note: Please also refer to the separate dictated note~for this date of service dictated separately.~Patient seen individually. Discussed the patient with Nursing staff reviewed the chart.~Reviewed interim history and current functioning. Reviewed vital signs,~Labs/ Radiology~and current medications noted below. Continue current treatment with the changes noted in the dictated addendum note Assessment: Vital Signs/I&O: Vital Signs Date Time Temp Pulse Resp B/P (MAP) Pulse Ox O2 Delivery O2 Flow Rate FiO2 08/07/21 16:14 97.3 71 16 120/63 (82) 98 Room Air I & O 08/06/21 08/06/21 08/07/21 15:00 23:00 07:00 Intake Total 600 ml 720 ml Balance 600 ml 720 ml Current Medications: Meds: Current Medications Medications (Trade) Dose Ordered Sig/Miki Route PRN Reason Start Time Stop Time Status Last Admin Dose Admin Acetaminophen (Tylenol) 650 mg PRN Q6HRS PRN PO MILD PAIN / TEMP > 100.3'F 07/29/21 15:00 07/29/21 15:44 DC Multi-Ingredient Ointment (Analgesic [place]) 1 martinez PRN QID PRN TP MUSCLE PAIN 07/29/21 15:00 Al Hydroxide/Mg Hydroxide (Mylanta Plus Xs) 15 ml PRN AFTMEALHC PRN PO DYSPEPSIA 07/29/21 15:00 Magnesium Hydroxide (Milk Of Magnesia) 2,400 mg PRN QHS PRN PO CONSTIPATION 07/29/21 15:00 Acetaminophen (Tylenol) 650 mg PRN Q4HRS PRN PO MILD PAIN / TEMP > 100.3'F 07/29/21 15:45 08/07/21 08:29 Aspirin (Aspirin Enteric Coated) 81 mg DAILY PO 07/30/21 09:00 08/07/21 08:24 Donepezil HCl (Aricept) 5 mg HS PO 07/29/21 21:00 08/07/21 20:50 Levothyroxine Sodium (Synthroid) 75 mcg DAILY06 PO 07/30/21 06:00 08/07/21 05:56 Non-Formulary Medication ([place] Carbonate ) 150 mg DAILY PO 07/30/21 09:00 07/29/21 16:01 DC Non-Formulary Medication ([place] Carbonate ) 300 mg HS PO 07/29/21 21:00 UNV Non-Formulary Medication (Nifedipine (Procardia Xl)) 90 mg DAILY PO 07/30/21 09:00 07/29/21 15:51 DC Nifedipine (Procardia Xl) 90 mg DAILY PO 07/30/21 09:00 08/07/21 07:50 DC 08/05/21 09:06 [place] Carbonate 300 mg QHS PO 07/29/21 21:00 08/07/21 20:49 [place] Carbonate 150 mg DAILY PO 07/30/21 09:00 08/07/21 08:24 Olanzapine (ZyPREXA ZYDIS) 2.5 mg PRN Q2HRS PRN PO PSYCHOSIS 07/29/21 21:30 07/30/21 00:11 Trazodone HCl (Desyrel) 50 mg PRN QHS PRN PO INSOMNIA, MAY REPEAT X1 07/29/21 21:30 UNV Nicotine (Nicoderm Cq 14mg Patch) 1 patch DAILY TD 07/30/21 11:00 08/07/21 08:27 Lorazepam (Ativan) 0.5 mg PRN Q4HRS PRN PO ANXIETY / AGITATION 07/30/21 21:45 07/31/21 21:38 Lorazepam (Ativan) 0.5 mg HS PO 08/01/21 21:00 08/07/21 20:51 Artificial Tears (Artificial Tears) 1 drop PRN Q15MIN PRN OU DRY EYE 08/01/21 11:15 08/04/21 05:33 Artificial Tears (Artificial Tears) 1 drop BID OU 08/03/21 09:00 08/07/21 20:53 Mirtazapine (Remeron) 7.5 mg QHS PO 08/06/21 21:00 08/07/21 20:50 I have reviewed the current psychotropics carefully including drug interactions. Risk benefit ratio favors no change other than as noted in my dictated progress note. Diagnosis: Problems: (1) Major neurocognitive disorder (2) Impulse control disorder, unspecified (3) Anxiety disorder, unspecified (4) Bipolar disorder, current episode mixed, severe, with psychotic features AUSTEN FLETCHER MD Aug 07, 2021 22:40
--- NOTE | 2021-08-08 02:22 | NUR ---
Nursing Note The patient was located in her room for her assessment and medication pass. The patient was argumentative with her medications but did eventually take them whole. The patient was alert to name and city name. The patient is currently sleeping in her room.
[2021-08-08] MEDS: LEVOTHYROXINE 75 MCG TABLET PO SCH (05:49)
[2021-08-08 06:10] VITALS: BP 132/78
[2021-08-08] MEDS: ASPIRIN ENTERIC COATED 81 MG TABLET.DR. PO SCH (08:07)
[2021-08-08] MEDS: LITHIUM CARBONATE 300 MG TABLET PO SCH ×2 (08:08→20:26)
[2021-08-08] MEDS: POLYVINYL ALCOHOL 1.4% OPHTH SOLUTION 15ML BOTTLE. OU SCH ×2 (08:09→20:26)
[2021-08-08] MEDS: NICOTINE 14MG PATCH. TD SCH (08:09)
[2021-08-08] MEDS: ACETAMINOPHEN 325 MG TABLET PO PRN (08:40)
--- NOTE | 2021-08-08 12:25 | NUR ---
Nsg Note; Loraine has been calm, med compliant and cooperative this am. she sat in the [facility] visiting with other patients.
[2021-08-08 16:36] VITALS: BP 137/81
[2021-08-08] MEDS: LORazepam 0.5 MG TABLET PO SCH (20:25)
[2021-08-08] MEDS: DONEPEZIL HCL 5 MG TABLET. PO SCH (20:26)
[2021-08-08] MEDS: MIRTAZAPINE 7.5 MG TABLET. PO SCH (20:26)
--- NOTE | 2021-08-08 22:32 | PDOC ---
Exam Note: Isaiah Note: This note is a late entry for 08/06/2021 covers elements not covered in my initial note. Subjective: The patient was reviewed at treatment team meeting individually in the morning on 08/06/2021 with Shelli Arango, Alejandrina Aguila (social media director), Kylah, activity therapy and Xochilt VICTORIA, discussed and reviewed the chart. The patient slept 6-1/4 hours previous night. Sleeping average 6-1/2 hours. The patients daughter Nandini also attended the treatment team meeting. We had a lengthy discussion about the patients diagnoses, current psychotropic placement options and daughter is planning to have the patient move closer to the daughter in the [facility]. She refused a.m. antihypertensive medications. She continues to have some insomnia and we will add Remeron 7.5 mg h.s., trazodone 50 mg h.s. p.r.n. was considered but she has responded adversely to trazodone in the past and we will note it as an allergy. Review of Systems: Impaired ambulation with walker. No CV, , pulmonary, eye system symptoms on review. Mental Status Exam: The patient is reasonably oriented. Speech coherent. Abstraction fair. Computation impaired. Language function intact. Mood and affect improved. Laboratory Data: Reviewed. Impression: Bipolar 1 disorder mixed with psychotic features. Mild cognitive impairment. Anxiety disorder unspecified. Impulse control disorder unspecified. Plan: Continue current psychotropics. She continues to have some insomnia and we will add Remeron 7.5 mg h.s., trazodone 50 mg h.s. p.r.n. was considered but she has responded adversely to trazodone in the past and we will note it as an allergy. Continue lithium at current dosage, Aricept and Ativan 0.5 mg h.s. Rest unchanged for now. Assessment: Vital Signs/I&O: Vital Signs Date Time Temp Pulse Resp B/P (MAP) Pulse Ox O2 Delivery O2 Flow Rate FiO2 08/08/21 16:36 98.1 75 16 137/81 (99) 96 08/08/21 06:10 Room Air I & O 08/07/21 08/07/21 08/08/21 15:00 23:00 07:00 Intake Total 840 ml 360 ml 240 ml Balance 840 ml 360 ml 240 ml Labs: Laboratory Tests Test 08/08/21 06:00 SARS-CoV-2 (PCR) Negative (NEGATIVE) Current Medications: Meds: Laboratory Tests Test 08/08/21 06:00 Coronavirus (COVID-19)(PCR) Negative Current Medications Medications (Trade) Dose Ordered Sig/Miki Route PRN Reason Start Time Stop Time Status Last Admin Dose Admin Acetaminophen (Tylenol) 650 mg PRN Q6HRS PRN PO MILD PAIN / TEMP > 100.3'F 07/29/21 15:00 07/29/21 15:44 DC Multi-Ingredient Ointment (Analgesic [place]) 1 martinez PRN QID PRN TP MUSCLE PAIN 07/29/21 15:00 Al Hydroxide/Mg Hydroxide (Mylanta Plus Xs) 15 ml PRN AFTMEALHC PRN PO DYSPEPSIA 07/29/21 15:00 Magnesium Hydroxide (Milk Of Magnesia) 2,400 mg PRN QHS PRN PO CONSTIPATION 07/29/21 15:00 Acetaminophen (Tylenol) 650 mg PRN Q4HRS PRN PO MILD PAIN / TEMP > 100.3'F 07/29/21 15:45 08/08/21 08:40 Aspirin (Aspirin Enteric Coated) 81 mg DAILY PO 07/30/21 09:00 08/08/21 08:07 Donepezil HCl (Aricept) 5 mg HS PO 07/29/21 21:00 08/08/21 20:26 Levothyroxine Sodium (Synthroid) 75 mcg DAILY06 PO 07/30/21 06:00 08/08/21 05:49 Non-Formulary Medication ([place] Carbonate ) 150 mg DAILY PO 07/30/21 09:00 07/29/21 16:01 DC Non-Formulary Medication ([place] Carbonate ) 300 mg HS PO 07/29/21 21:00 UNV Non-Formulary Medication (Nifedipine (Procardia Xl)) 90 mg DAILY PO 07/30/21 09:00 07/29/21 15:51 DC Nifedipine (Procardia Xl) 90 mg DAILY PO 07/30/21 09:00 08/07/21 07:50 DC 08/05/21 09:06 [place] Carbonate 300 mg QHS PO 07/29/21 21:00 08/08/21 20:26 [place] Carbonate 150 mg DAILY PO 07/30/21 09:00 08/08/21 08:08 Olanzapine (ZyPREXA ZYDIS) 2.5 mg PRN Q2HRS PRN PO PSYCHOSIS 07/29/21 21:30 07/30/21 00:11 Trazodone HCl (Desyrel) 50 mg PRN QHS PRN PO INSOMNIA, MAY REPEAT X1 07/29/21 21:30 UNV Nicotine (Nicoderm Cq 14mg Patch) 1 patch DAILY TD 07/30/21 11:00 08/08/21 08:09 Lorazepam (Ativan) 0.5 mg PRN Q4HRS PRN PO ANXIETY / AGITATION 07/30/21 21:45 07/31/21 21:38 Lorazepam (Ativan) 0.5 mg HS PO 08/01/21 21:00 08/08/21 20:25 Artificial Tears (Artificial Tears) 1 drop PRN Q15MIN PRN OU DRY EYE 08/01/21 11:15 08/04/21 05:33 Artificial Tears (Artificial Tears) 1 drop BID OU 08/03/21 09:00 08/08/21 20:26 Mirtazapine (Remeron) 7.5 mg QHS PO 08/06/21 21:00 08/08/21 20:26 I have reviewed the current psychotropics carefully including drug interactions. Risk benefit ratio favors no change other than as noted in my dictated progress note. Diagnosis: Problems: (1) Major neurocognitive disorder (2) Impulse control disorder, unspecified (3) Anxiety disorder, unspecified (4) Bipolar disorder, current episode mixed, severe, with psychotic features AUSTEN FLETCHER MD Aug 08, 2021 22:32
--- NOTE | 2021-08-08 22:32 | PDOC ---
Exam Note: Isaiah Note: Please also refer to the separate dictated note~for this date of service dictated separately.~Patient seen individually. Discussed the patient with Nursing staff reviewed the chart.~Reviewed interim history and current functioning. Reviewed vital signs,~Labs/ Radiology~and current medications noted below. Continue current treatment with the changes noted in the dictated addendum note Assessment: Vital Signs/I&O: Vital Signs Date Time Temp Pulse Resp B/P (MAP) Pulse Ox O2 Delivery O2 Flow Rate FiO2 08/08/21 16:36 98.1 75 16 137/81 (99) 96 08/08/21 06:10 Room Air I & O 08/07/21 08/07/21 08/08/21 15:00 23:00 07:00 Intake Total 840 ml 360 ml 240 ml Balance 840 ml 360 ml 240 ml Labs: Laboratory Tests Test 08/08/21 06:00 SARS-CoV-2 (PCR) Negative (NEGATIVE) Current Medications: I have reviewed the current psychotropics carefully including drug interactions. Risk benefit ratio favors no change other than as noted in my dictated progress note. Diagnosis: Problems: (1) Major neurocognitive disorder (2) Impulse control disorder, unspecified (3) Anxiety disorder, unspecified (4) Bipolar disorder, current episode mixed, severe, with psychotic features ASUTEN FLETCHER MD Aug 08, 2021 22:32
--- NOTE | 2021-08-09 00:36 | NUR ---
Last evening pt sat in the [facility] visiting with peers before going to bed, She has been cooperative with cares and took meds whole without difficulty. She has had no behaviors tonight.
[2021-08-09 06:09] LABS: CALCIUM PTH 10.9 mg/dL (8.7-10.3); PTH INTACT 69 pg/mL (15-65)
[2021-08-09] MEDS: LEVOTHYROXINE 75 MCG TABLET PO SCH (06:19)
[2021-08-09 06:29] VITALS: BP 155/77
--- NOTE | 2021-08-09 06:48 | PDOC ---
Exam Note: Isaiah Note: This note is a late entry for 08/07/2021 covers elements not covered in my initial note. Subjective: The patient was seen individually in the evening of 08/07/2021 with Ramsey VICTORIA, discussed and reviewed the chart. The patient slept 5-3/4 hours previous night. Overall she is doing reasonably well, not compliant with using walker, at times irritable. Review of Systems: Impaired ambulation. No CV, , pulmonary, eye system symptoms on review. Mental Status Exam: The patient is oriented to herself and situation. She was quite pleasant and interactive during the individual visit. Speech coherent. Abstraction fair. Computation impaired. Language function intact. Attention span short. Mood and affect improved, less manic. No suicidal or homicidal ideation. She is less obsessed about stressors of selling her home and she accepts her daughter will help her. Laboratory Data: Reviewed. Impression: Bipolar 1 disorder mixed with psychotic features. Mild cognitive impairment. Anxiety disorder unspecified. Impulse control disorder unspecified. Plan: Continue current psychotropics. Assessment: Vital Signs/I&O: Vital Signs Date Time Temp Pulse Resp B/P (MAP) Pulse Ox O2 Delivery O2 Flow Rate FiO2 08/09/21 06:29 97.8 76 18 155/77 (103) 99 Room Air I & O 08/08/21 08/08/21 08/09/21 15:00 23:00 07:00 Intake Total 1180 ml 670 ml Balance 1180 ml 670 ml Current Medications: Meds: Current Medications Medications (Trade) Dose Ordered Sig/Miki Route PRN Reason Start Time Stop Time Status Last Admin Dose Admin Acetaminophen (Tylenol) 650 mg PRN Q6HRS PRN PO MILD PAIN / TEMP > 100.3'F 07/29/21 15:00 07/29/21 15:44 DC Multi-Ingredient Ointment (Analgesic [place]) 1 martinez PRN QID PRN TP MUSCLE PAIN 07/29/21 15:00 Al Hydroxide/Mg Hydroxide (Mylanta Plus Xs) 15 ml PRN AFTMEALHC PRN PO DYSPEPSIA 07/29/21 15:00 Magnesium Hydroxide (Milk Of Magnesia) 2,400 mg PRN QHS PRN PO CONSTIPATION 07/29/21 15:00 Acetaminophen (Tylenol) 650 mg PRN Q4HRS PRN PO MILD PAIN / TEMP > 100.3'F 07/29/21 15:45 08/08/21 08:40 Aspirin (Aspirin Enteric Coated) 81 mg DAILY PO 07/30/21 09:00 08/08/21 08:07 Donepezil HCl (Aricept) 5 mg HS PO 07/29/21 21:00 08/08/21 20:26 Levothyroxine Sodium (Synthroid) 75 mcg DAILY06 PO 07/30/21 06:00 08/09/21 06:19 Non-Formulary Medication ([place] Carbonate ) 150 mg DAILY PO 07/30/21 09:00 07/29/21 16:01 DC Non-Formulary Medication ([place] Carbonate ) 300 mg HS PO 07/29/21 21:00 UNV Non-Formulary Medication (Nifedipine (Procardia Xl)) 90 mg DAILY PO 07/30/21 09:00 07/29/21 15:51 DC Nifedipine (Procardia Xl) 90 mg DAILY PO 07/30/21 09:00 08/07/21 07:50 DC 08/05/21 09:06 [place] Carbonate 300 mg QHS PO 07/29/21 21:00 08/08/21 20:26 [place] Carbonate 150 mg DAILY PO 07/30/21 09:00 08/08/21 08:08 Olanzapine (ZyPREXA ZYDIS) 2.5 mg PRN Q2HRS PRN PO PSYCHOSIS 07/29/21 21:30 07/30/21 00:11 Trazodone HCl (Desyrel) 50 mg PRN QHS PRN PO INSOMNIA, MAY REPEAT X1 07/29/21 21:30 UNV Nicotine (Nicoderm Cq 14mg Patch) 1 patch DAILY TD 07/30/21 11:00 08/08/21 08:09 Lorazepam (Ativan) 0.5 mg PRN Q4HRS PRN PO ANXIETY / AGITATION 07/30/21 21:45 07/31/21 21:38 Lorazepam (Ativan) 0.5 mg HS PO 08/01/21 21:00 08/08/21 20:25 Artificial Tears (Artificial Tears) 1 drop PRN Q15MIN PRN OU DRY EYE 08/01/21 11:15 08/04/21 05:33 Artificial Tears (Artificial Tears) 1 drop BID OU 08/03/21 09:00 08/08/21 20:26 Mirtazapine (Remeron) 7.5 mg QHS PO 08/06/21 21:00 08/08/21 20:26 I have reviewed the current psychotropics carefully including drug interactions. Risk benefit ratio favors no change other than as noted in my dictated progress note. Diagnosis: Problems: (1) Major neurocognitive disorder (2) Impulse control disorder, unspecified (3) Anxiety disorder, unspecified (4) Bipolar disorder, current episode mixed, severe, with psychotic features AUSTEN FLETCHER MD Aug 09, 2021 06:48
[2021-08-09] MEDS: NICOTINE 14MG PATCH. TD SCH (08:20)
[2021-08-09] MEDS: LITHIUM CARBONATE 300 MG TABLET PO SCH ×2 (08:20→20:43)
[2021-08-09] MEDS: ASPIRIN ENTERIC COATED 81 MG TABLET.DR. PO SCH (08:20)
[2021-08-09] MEDS: POLYVINYL ALCOHOL 1.4% OPHTH SOLUTION 15ML BOTTLE. OU SCH ×2 (08:21→20:42)
--- NOTE | 2021-08-09 16:00 | NUR ---
Nursing note: Pt has been med compliant and cooperative this shift. She is irritable at times when she does not get what she wants immediately when she asks for something, but is able to be redirected. Pt has been social with other pt's in the hallway and the day room this shift. Pt has denied having any pain/concerns. Will continue to monitor.
[2021-08-09 16:31] VITALS: BP 145/82
[2021-08-09] MEDS: MIRTAZAPINE 7.5 MG TABLET. PO SCH (20:42)
[2021-08-09] MEDS: LORazepam 0.5 MG TABLET PO SCH (20:43)
[2021-08-09] MEDS: DONEPEZIL HCL 5 MG TABLET. PO SCH (20:43)
--- NOTE | 2021-08-09 22:11 | PDOC ---
Exam Note: Isaiah Note: Please also refer to the separate dictated note~for this date of service dictated separately.~Patient seen individually. Discussed the patient with Nursing staff reviewed the chart.~Reviewed interim history and current functioning. Reviewed vital signs,~Labs/ Radiology~and current medications noted below. Continue current treatment with the changes noted in the dictated addendum note Assessment: Vital Signs/I&O: Vital Signs Date Time Temp Pulse Resp B/P (MAP) Pulse Ox O2 Delivery O2 Flow Rate FiO2 08/09/21 16:31 97.6 77 16 145/82 (103) 96 08/09/21 06:29 Room Air I & O 08/08/21 08/08/21 08/09/21 15:00 23:00 07:00 Intake Total 1180 ml 670 ml Balance 1180 ml 670 ml Current Medications: Meds: Current Medications Medications (Trade) Dose Ordered Sig/Miki Route PRN Reason Start Time Stop Time Status Last Admin Dose Admin Acetaminophen (Tylenol) 650 mg PRN Q6HRS PRN PO MILD PAIN / TEMP > 100.3'F 07/29/21 15:00 07/29/21 15:44 DC Multi-Ingredient Ointment (Analgesic [place]) 1 martinez PRN QID PRN TP MUSCLE PAIN 07/29/21 15:00 Al Hydroxide/Mg Hydroxide (Mylanta Plus Xs) 15 ml PRN AFTMEALHC PRN PO DYSPEPSIA 07/29/21 15:00 Magnesium Hydroxide (Milk Of Magnesia) 2,400 mg PRN QHS PRN PO CONSTIPATION 07/29/21 15:00 Acetaminophen (Tylenol) 650 mg PRN Q4HRS PRN PO MILD PAIN / TEMP > 100.3'F 07/29/21 15:45 08/08/21 08:40 Aspirin (Aspirin Enteric Coated) 81 mg DAILY PO 07/30/21 09:00 08/09/21 08:20 Donepezil HCl (Aricept) 5 mg HS PO 07/29/21 21:00 08/09/21 20:43 Levothyroxine Sodium (Synthroid) 75 mcg DAILY06 PO 07/30/21 06:00 08/09/21 06:19 Non-Formulary Medication ([place] Carbonate ) 150 mg DAILY PO 07/30/21 09:00 07/29/21 16:01 DC Non-Formulary Medication ([place] Carbonate ) 300 mg HS PO 07/29/21 21:00 UNV Non-Formulary Medication (Nifedipine (Procardia Xl)) 90 mg DAILY PO 07/30/21 09:00 07/29/21 15:51 DC Nifedipine (Procardia Xl) 90 mg DAILY PO 07/30/21 09:00 08/07/21 07:50 DC 08/05/21 09:06 [place] Carbonate 300 mg QHS PO 07/29/21 21:00 08/09/21 20:43 [place] Carbonate 150 mg DAILY PO 07/30/21 09:00 08/09/21 08:20 Olanzapine (ZyPREXA ZYDIS) 2.5 mg PRN Q2HRS PRN PO PSYCHOSIS 07/29/21 21:30 07/30/21 00:11 Trazodone HCl (Desyrel) 50 mg PRN QHS PRN PO INSOMNIA, MAY REPEAT X1 07/29/21 21:30 UNV Nicotine (Nicoderm Cq 14mg Patch) 1 patch DAILY TD 07/30/21 11:00 08/09/21 08:20 Lorazepam (Ativan) 0.5 mg PRN Q4HRS PRN PO ANXIETY / AGITATION 07/30/21 21:45 07/31/21 21:38 Lorazepam (Ativan) 0.5 mg HS PO 08/01/21 21:00 08/09/21 20:43 Artificial Tears (Artificial Tears) 1 drop PRN Q15MIN PRN OU DRY EYE 08/01/21 11:15 08/04/21 05:33 Artificial Tears (Artificial Tears) 1 drop BID OU 08/03/21 09:00 08/09/21 20:42 Mirtazapine (Remeron) 7.5 mg QHS PO 08/06/21 21:00 08/09/21 20:42 I have reviewed the current psychotropics carefully including drug interactions. Risk benefit ratio favors no change other than as noted in my dictated progress note. Diagnosis: Problems: (1) Major neurocognitive disorder (2) Impulse control disorder, unspecified (3) Anxiety disorder, unspecified (4) Bipolar disorder, current episode mixed, severe, with psychotic features AUSTEN FLETCHER MD Aug 09, 2021 22:11
--- NOTE | 2021-08-10 02:10 | NUR ---
At HS med pass tonight pt took meds whole and has been cooperative with cares. She has had no behaviors tonight and has been sleeping.
[2021-08-10 06:01] LABS: BASO # 0.1 x10^3/uL (0.0-0.2); BASO % 1 % (0-3); EOS # 0.4 x10^3/uL (0.0-0.7); EOS % 5 % (0-3); HEMATOCRIT 36.6 % (36.0-47.0); HEMOGLOBIN 11.9 g/dL (12.0-15.5); LYMPH % 25 % (24-48); MEAN CORPUSCULAR HEMOGLOBIN 32 pg (25-35); MEAN CORPUSCULAR HGB CONC 32 g/dL (31-37); MEAN CORPUSCULAR VOLUME 98 fL (79-100); MONO # 0.5 x10^3/uL (0.0-1.1); MONO % 6 % (0-9); NEUT # 5.2 x10^3uL (1.8-7.7); NEUT % 63 % (31-73); PLATELET COUNT 215 x10^3/uL (140-400); RED BLOOD COUNT 3.76 x10^6/uL (3.50-5.40); RED CELL DISTRIBUTION WIDTH 13.8 % (11.5-14.5); WHITE BLOOD COUNT 8.2 x10^3/uL (4.0-11.0)
[2021-08-10] MEDS: LEVOTHYROXINE 75 MCG TABLET PO SCH (06:01)
[2021-08-10 06:14] LABS: ALBUMIN/GLOBULIN RATIO 0.8 (1.0-1.7); CALCIUM 10.5 mg/dL (8.5-10.1); GFR 53.3; POTASSIUM 4.4 mmol/L (3.5-5.1); TOTAL BILIRUBIN 0.4 mg/dL (0.2-1.0); TOTAL PROTEIN 6.6 g/dL (6.4-8.2)
[2021-08-10 06:15] VITALS: BP 118/70
--- NOTE | 2021-08-10 06:25 | PDOC ---
Exam Note: Isaiah Note: This note is a late entry for 08/08/2021 covers elements not covered in my initial note. Subjective: The patient was seen individually in the evening of 08/08/2021 with Vilma VICTORIA, discussed and reviewed the chart. The patient slept 7 hours previous night. She often argues about her medications per nursing report, otherwise, cooperative. She does have mild short-term memory deficits but reasonably cognitively intact. I met with her at some length in her room. Review of Systems: Impaired ambulation. No CV, , pulmonary, eye system symptoms on review. Mental Status Exam: The patient is oriented to herself and situation. She was pleasant, verbal, and interactive during the individual visit. She states she may consider going to be closer to her daughter but only after she has taken care of her home and other belongings here in this area. We addressed this at some length. Speech coherent. Abstraction fair. Computation impaired. Language function intact. Attention span short. Mood and affect improved. Mood lability is improved. No suicidal or homicidal ideation. Laboratory Data: Reviewed. [place] level is therapeutic at 0.9. Impression: Bipolar 1 disorder mixed with psychotic features. Mild cognitive impairment. Anxiety disorder unspecified. Impulse control disorder unspecified. Plan: Continue current psychotropics. Assessment: Vital Signs/I&O: Vital Signs Date Time Temp Pulse Resp B/P (MAP) Pulse Ox O2 Delivery O2 Flow Rate FiO2 08/10/21 06:15 98.8 66 18 118/70 (86) 97 08/09/21 06:29 Room Air I & O 08/09/21 08/09/21 08/10/21 15:00 23:00 07:00 Intake Total 480 ml 480 ml Balance 480 ml 480 ml Labs: Laboratory Tests Test 08/10/21 05:44 White Blood Count 8.2 x10^3/uL (4.0-11.0) Red Blood Count 3.76 x10^6/uL (3.50-5.40) Hemoglobin 11.9 g/dL (12.0-15.5) L Hematocrit 36.6 % (36.0-47.0) Mean Corpuscular Volume 98 fL (79-100) Mean Corpuscular Hemoglobin 32 pg (25-35) Mean Corpuscular Hemoglobin Concent 32 g/dL (31-37) Red Cell Distribution Width 13.8 % (11.5-14.5) Platelet Count 215 x10^3/uL (140-400) Neutrophils (%) (Auto) 63 % (31-73) Lymphocytes (%) (Auto) 25 % (24-48) Monocytes (%) (Auto) 6 % (0-9) Eosinophils (%) (Auto) 5 % (0-3) H Basophils (%) (Auto) 1 % (0-3) Neutrophils # (Auto) 5.2 x10^3uL (1.8-7.7) Lymphocytes # (Auto) 2.0 x10^3/uL (1.0-4.8) Monocytes # (Auto) 0.5 x10^3/uL (0.0-1.1) Eosinophils # (Auto) 0.4 x10^3/uL (0.0-0.7) Basophils # (Auto) 0.1 x10^3/uL (0.0-0.2) Sodium Level 144 mmol/L (136-145) Potassium Level 4.4 mmol/L (3.5-5.1) Chloride Level 110 mmol/L (98-107) H Carbon Dioxide Level 25 mmol/L (21-32) Anion Gap 9 (6-14) Blood Urea Nitrogen 22 mg/dL (7-20) H Creatinine 1.0 mg/dL (0.6-1.0) Estimated GFR (Cockcroft-Gault) 53.3 BUN/Creatinine Ratio 22 (6-20) H Glucose Level 95 mg/dL (70-99) Calcium Level 10.5 mg/dL (8.5-10.1) H Total Bilirubin 0.4 mg/dL (0.2-1.0) Aspartate Amino Transferase (AST) 21 U/L (15-37) Alanine Aminotransferase (ALT) 29 U/L (14-59) Alkaline Phosphatase 85 U/L (46-116) Total Protein 6.6 g/dL (6.4-8.2) Albumin 3.0 g/dL (3.4-5.0) L Albumin/Globulin Ratio 0.8 (1.0-1.7) L Current Medications: Meds: Laboratory Tests Test 08/10/21 05:44 White Blood Count 8.2 x10^3/uL Red Blood Count 3.76 x10^6/uL Hemoglobin 11.9 g/dL Hematocrit 36.6 % Mean Corpuscular Volume 98 fL Mean Corpuscular Hemoglobin 32 pg Mean Corpuscular Hemoglobin Concent 32 g/dL Red Cell Distribution Width 13.8 % Platelet Count 215 x10^3/uL Neutrophils (%) (Auto) 63 % Lymphocytes (%) (Auto) 25 % Monocytes (%) (Auto) 6 % Eosinophils (%) (Auto) 5 % Basophils (%) (Auto) 1 % Neutrophils # (Auto) 5.2 x10^3uL Lymphocytes # (Auto) 2.0 x10^3/uL Monocytes # (Auto) 0.5 x10^3/uL Eosinophils # (Auto) 0.4 x10^3/uL Basophils # (Auto) 0.1 x10^3/uL Sodium Level 144 mmol/L Potassium Level 4.4 mmol/L Chloride Level 110 mmol/L Carbon Dioxide Level 25 mmol/L Anion Gap 9 Blood Urea Nitrogen 22 mg/dL Creatinine 1.0 mg/dL Estimated GFR (Cockcroft-Gault) 53.3 BUN/Creatinine Ratio 22 Glucose Level 95 mg/dL Calcium Level 10.5 mg/dL Total Bilirubin 0.4 mg/dL Aspartate Amino Transf (AST/SGOT) 21 U/L Alanine Aminotransferase (ALT/SGPT) 29 U/L Alkaline Phosphatase 85 U/L Total Protein 6.6 g/dL Albumin 3.0 g/dL Albumin/Globulin Ratio 0.8 Current Medications Medications (Trade) Dose Ordered Sig/Miki Route PRN Reason Start Time Stop Time Status Last Admin Dose Admin Acetaminophen (Tylenol) 650 mg PRN Q6HRS PRN PO MILD PAIN / TEMP > 100.3'F 07/29/21 15:00 07/29/21 15:44 DC Multi-Ingredient Ointment (Analgesic [place]) 1 martinez PRN QID PRN TP MUSCLE PAIN 07/29/21 15:00 Al Hydroxide/Mg Hydroxide (Mylanta Plus Xs) 15 ml PRN AFTMEALHC PRN PO DYSPEPSIA 07/29/21 15:00 Magnesium Hydroxide (Milk Of Magnesia) 2,400 mg PRN QHS PRN PO CONSTIPATION 07/29/21 15:00 Acetaminophen (Tylenol) 650 mg PRN Q4HRS PRN PO MILD PAIN / TEMP > 100.3'F 07/29/21 15:45 08/08/21 08:40 Aspirin (Aspirin Enteric Coated) 81 mg DAILY PO 07/30/21 09:00 08/09/21 08:20 Donepezil HCl (Aricept) 5 mg HS PO 07/29/21 21:00 08/09/21 20:43 Levothyroxine Sodium (Synthroid) 75 mcg DAILY06 PO 07/30/21 06:00 08/10/21 06:01 Non-Formulary Medication ([place] Carbonate ) 150 mg DAILY PO 07/30/21 09:00 07/29/21 16:01 DC Non-Formulary Medication ([place] Carbonate ) 300 mg HS PO 07/29/21 21:00 UNV Non-Formulary Medication (Nifedipine (Procardia Xl)) 90 mg DAILY PO 07/30/21 09:00 07/29/21 15:51 DC Nifedipine (Procardia Xl) 90 mg DAILY PO 07/30/21 09:00 08/07/21 07:50 DC 08/05/21 09:06 [place] Carbonate 300 mg QHS PO 07/29/21 21:00 08/09/21 20:43 [place] Carbonate 150 mg DAILY PO 07/30/21 09:00 08/09/21 08:20 Olanzapine (ZyPREXA ZYDIS) 2.5 mg PRN Q2HRS PRN PO PSYCHOSIS 07/29/21 21:30 07/30/21 00:11 Trazodone HCl (Desyrel) 50 mg PRN QHS PRN PO INSOMNIA, MAY REPEAT X1 07/29/21 21:30 UNV Nicotine (Nicoderm Cq 14mg Patch) 1 patch DAILY TD 07/30/21 11:00 08/09/21 08:20 Lorazepam (Ativan) 0.5 mg PRN Q4HRS PRN PO ANXIETY / AGITATION 07/30/21 21:45 07/31/21 21:38 Lorazepam (Ativan) 0.5 mg HS PO 08/01/21 21:00 08/09/21 20:43 Artificial Tears (Artificial Tears) 1 drop PRN Q15MIN PRN OU DRY EYE 08/01/21 11:15 08/04/21 05:33 Artificial Tears (Artificial Tears) 1 drop BID OU 08/03/21 09:00 08/09/21 20:42 Mirtazapine (Remeron) 7.5 mg QHS PO 08/06/21 21:00 08/09/21 20:42 I have reviewed the current psychotropics carefully including drug interactions. Risk benefit ratio favors no change other than as noted in my dictated progress note. Diagnosis: Problems: (1) Major neurocognitive disorder (2) Impulse control disorder, unspecified (3) Anxiety disorder, unspecified (4) Bipolar disorder, current episode mixed, severe, with psychotic features AUSTEN FLETCHER MD Aug 10, 2021 06:25
--- NOTE | 2021-08-10 06:40 | PDOC ---
Exam Note: Isaiah Note: This note is a late entry for 08/09/2021 covers elements not covered in my initial note. Subjective: The patient was seen individually in the evening of 08/09/2021 with Van VICTORIA, discussed and reviewed the chart. The patient slept 8 hours previous night. She has been fairly appropriate, cooperative on the unit. I met with her in her room. She is concerned why she is getting Aricept and I discussed this at length with her. Review of Systems: Impaired ambulation. No CV, , pulmonary, eye, ENT system symptoms on review. Mental Status Exam: The patient is oriented to herself and situation. Speech coherent. Abstraction fair. Computation impaired. Language function intact. Attention span short. Mood and affect improved. No suicidal or homicidal ideation. Laboratory Data: Reviewed. Impression: Bipolar 1 disorder mixed with psychotic features. Mild cognitive impairment. Anxiety disorder unspecified. Impulse control disorder unspecified. Plan: Continue current psychotropics. Assessment: Vital Signs/I&O: Vital Signs Date Time Temp Pulse Resp B/P (MAP) Pulse Ox O2 Delivery O2 Flow Rate FiO2 08/10/21 06:15 98.8 66 18 118/70 (86) 97 08/09/21 06:29 Room Air I & O 08/09/21 08/09/21 08/10/21 15:00 23:00 07:00 Intake Total 480 ml 480 ml Balance 480 ml 480 ml Labs: Laboratory Tests Test 08/10/21 05:44 White Blood Count 8.2 x10^3/uL (4.0-11.0) Red Blood Count 3.76 x10^6/uL (3.50-5.40) Hemoglobin 11.9 g/dL (12.0-15.5) L Hematocrit 36.6 % (36.0-47.0) Mean Corpuscular Volume 98 fL (79-100) Mean Corpuscular Hemoglobin 32 pg (25-35) Mean Corpuscular Hemoglobin Concent 32 g/dL (31-37) Red Cell Distribution Width 13.8 % (11.5-14.5) Platelet Count 215 x10^3/uL (140-400) Neutrophils (%) (Auto) 63 % (31-73) Lymphocytes (%) (Auto) 25 % (24-48) Monocytes (%) (Auto) 6 % (0-9) Eosinophils (%) (Auto) 5 % (0-3) H Basophils (%) (Auto) 1 % (0-3) Neutrophils # (Auto) 5.2 x10^3uL (1.8-7.7) Lymphocytes # (Auto) 2.0 x10^3/uL (1.0-4.8) Monocytes # (Auto) 0.5 x10^3/uL (0.0-1.1) Eosinophils # (Auto) 0.4 x10^3/uL (0.0-0.7) Basophils # (Auto) 0.1 x10^3/uL (0.0-0.2) Sodium Level 144 mmol/L (136-145) Potassium Level 4.4 mmol/L (3.5-5.1) Chloride Level 110 mmol/L (98-107) H Carbon Dioxide Level 25 mmol/L (21-32) Anion Gap 9 (6-14) Blood Urea Nitrogen 22 mg/dL (7-20) H Creatinine 1.0 mg/dL (0.6-1.0) Estimated GFR (Cockcroft-Gault) 53.3 BUN/Creatinine Ratio 22 (6-20) H Glucose Level 95 mg/dL (70-99) Calcium Level 10.5 mg/dL (8.5-10.1) H Total Bilirubin 0.4 mg/dL (0.2-1.0) Aspartate Amino Transferase (AST) 21 U/L (15-37) Alanine Aminotransferase (ALT) 29 U/L (14-59) Alkaline Phosphatase 85 U/L (46-116) Total Protein 6.6 g/dL (6.4-8.2) Albumin 3.0 g/dL (3.4-5.0) L Albumin/Globulin Ratio 0.8 (1.0-1.7) L Current Medications: Meds: Laboratory Tests Test 08/10/21 05:44 White Blood Count 8.2 x10^3/uL Red Blood Count 3.76 x10^6/uL Hemoglobin 11.9 g/dL Hematocrit 36.6 % Mean Corpuscular Volume 98 fL Mean Corpuscular Hemoglobin 32 pg Mean Corpuscular Hemoglobin Concent 32 g/dL Red Cell Distribution Width 13.8 % Platelet Count 215 x10^3/uL Neutrophils (%) (Auto) 63 % Lymphocytes (%) (Auto) 25 % Monocytes (%) (Auto) 6 % Eosinophils (%) (Auto) 5 % Basophils (%) (Auto) 1 % Neutrophils # (Auto) 5.2 x10^3uL Lymphocytes # (Auto) 2.0 x10^3/uL Monocytes # (Auto) 0.5 x10^3/uL Eosinophils # (Auto) 0.4 x10^3/uL Basophils # (Auto) 0.1 x10^3/uL Sodium Level 144 mmol/L Potassium Level 4.4 mmol/L Chloride Level 110 mmol/L Carbon Dioxide Level 25 mmol/L Anion Gap 9 Blood Urea Nitrogen 22 mg/dL Creatinine 1.0 mg/dL Estimated GFR (Cockcroft-Gault) 53.3 BUN/Creatinine Ratio 22 Glucose Level 95 mg/dL Calcium Level 10.5 mg/dL Total Bilirubin 0.4 mg/dL Aspartate Amino Transf (AST/SGOT) 21 U/L Alanine Aminotransferase (ALT/SGPT) 29 U/L Alkaline Phosphatase 85 U/L Total Protein 6.6 g/dL Albumin 3.0 g/dL Albumin/Globulin Ratio 0.8 Current Medications Medications (Trade) Dose Ordered Sig/Miki Route PRN Reason Start Time Stop Time Status Last Admin Dose Admin Acetaminophen (Tylenol) 650 mg PRN Q6HRS PRN PO MILD PAIN / TEMP > 100.3'F 07/29/21 15:00 07/29/21 15:44 DC Multi-Ingredient Ointment (Analgesic [place]) 1 martinez PRN QID PRN TP MUSCLE PAIN 07/29/21 15:00 Al Hydroxide/Mg Hydroxide (Mylanta Plus Xs) 15 ml PRN AFTMEALHC PRN PO DYSPEPSIA 07/29/21 15:00 Magnesium Hydroxide (Milk Of Magnesia) 2,400 mg PRN QHS PRN PO CONSTIPATION 07/29/21 15:00 Acetaminophen (Tylenol) 650 mg PRN Q4HRS PRN PO MILD PAIN / TEMP > 100.3'F 07/29/21 15:45 08/08/21 08:40 Aspirin (Aspirin Enteric Coated) 81 mg DAILY PO 07/30/21 09:00 08/09/21 08:20 Donepezil HCl (Aricept) 5 mg HS PO 07/29/21 21:00 08/09/21 20:43 Levothyroxine Sodium (Synthroid) 75 mcg DAILY06 PO 07/30/21 06:00 08/10/21 06:01 Non-Formulary Medication ([place] Carbonate ) 150 mg DAILY PO 07/30/21 09:00 07/29/21 16:01 DC Non-Formulary Medication ([place] Carbonate ) 300 mg HS PO 07/29/21 21:00 UNV Non-Formulary Medication (Nifedipine (Procardia Xl)) 90 mg DAILY PO 07/30/21 09:00 07/29/21 15:51 DC Nifedipine (Procardia Xl) 90 mg DAILY PO 07/30/21 09:00 08/07/21 07:50 DC 08/05/21 09:06 [place] Carbonate 300 mg QHS PO 07/29/21 21:00 08/09/21 20:43 [place] Carbonate 150 mg DAILY PO 07/30/21 09:00 08/09/21 08:20 Olanzapine (ZyPREXA ZYDIS) 2.5 mg PRN Q2HRS PRN PO PSYCHOSIS 07/29/21 21:30 07/30/21 00:11 Trazodone HCl (Desyrel) 50 mg PRN QHS PRN PO INSOMNIA, MAY REPEAT X1 07/29/21 21:30 UNV Nicotine (Nicoderm Cq 14mg Patch) 1 patch DAILY TD 07/30/21 11:00 08/09/21 08:20 Lorazepam (Ativan) 0.5 mg PRN Q4HRS PRN PO ANXIETY / AGITATION 07/30/21 21:45 07/31/21 21:38 Lorazepam (Ativan) 0.5 mg HS PO 08/01/21 21:00 08/09/21 20:43 Artificial Tears (Artificial Tears) 1 drop PRN Q15MIN PRN OU DRY EYE 08/01/21 11:15 08/04/21 05:33 Artificial Tears (Artificial Tears) 1 drop BID OU 08/03/21 09:00 08/09/21 20:42 Mirtazapine (Remeron) 7.5 mg QHS PO 08/06/21 21:00 08/09/21 20:42 I have reviewed the current psychotropics carefully including drug interactions. Risk benefit ratio favors no change other than as noted in my dictated progress note. Diagnosis: Problems: (1) Major neurocognitive disorder (2) Impulse control disorder, unspecified (3) Anxiety disorder, unspecified (4) Bipolar disorder, current episode mixed, severe, with psychotic features AUSTEN FLETCHER MD Aug 10, 2021 06:40
[2021-08-10] MEDS: NICOTINE 14MG PATCH. TD SCH (08:40)
[2021-08-10] MEDS: LITHIUM CARBONATE 300 MG TABLET PO SCH ×2 (08:40→20:20)
[2021-08-10] MEDS: ASPIRIN ENTERIC COATED 81 MG TABLET.DR. PO SCH (08:40)
[2021-08-10] MEDS: POLYVINYL ALCOHOL 1.4% OPHTH SOLUTION 15ML BOTTLE. OU SCH ×2 (08:41→20:20)
--- NOTE | 2021-08-10 12:08 | NUR ---
[facility] Social Work Discharge Planning Form Patient Name SHANNEN HUSSEIN Admit Date: 07/29/21 DISCHARGE PLAN Discharge Destination: Home with HH/caregiver and plans to move to [facility] to be near daughter in the near future. Care Assessment: N/A Level II Assessment: N/A Transportation: Pt caregiver, Roseline Maza, through [facility] will p/u on Friday08/13/21 between 1200 and 1300. Special Instructions/Notes: Please fax signed med list and visit summary to PCP listed below. Please phone 60 day order of scripts to pharmacy below. DISCHARGE TO HOME: Home Address: [address] [place] [address]; [place] [address] Responsible [employer]: Michaelr/KYRA-Nandini Goldberg (P)[phone] Pharmacy [facility] Address: [address] [place] [address] (P)[phone] (F)[phone] Psychiatrist/Mental Health Follow Up: Dr. Sawyer [phone] Appointment: Dtr/DPOA will assist in scheduling a f/u appointment if needed prior to move to [place]. Primary Care Follow Up: Dr. Sánchez Gr Address: [address] [place] [address] (P)[phone] (F) [phone] Appointment: Dtr/DPOA will assist in scheduling a f/u appointment if needed prior to move to [place]. Home Health: [facility] (P)[phone] (F)[phone] Home Health Caregiver: Roseline Maza (P)[phone]
[2021-08-10] MEDS: ACETAMINOPHEN 325 MG TABLET PO PRN (14:17)
--- NOTE | 2021-08-10 14:50 | NUR ---
Nursing note: Pt has been pleasant, med compliant and cooperative this shift. She has been social with staff and peers. Pt c/o headache this afternoon and requested PRN tylenol. PRN provided with good effect. She is currently sitting on the patio socializing with peers. Will continue to monitor.
[2021-08-10 16:02] VITALS: BP 125/62
[2021-08-10] MEDS: LORazepam 0.5 MG TABLET PO SCH (20:20)
[2021-08-10] MEDS: MIRTAZAPINE 7.5 MG TABLET. PO SCH (20:20)
[2021-08-10] MEDS: DONEPEZIL HCL 5 MG TABLET. PO SCH (20:20)
--- NOTE | 2021-08-10 21:56 | PDOC ---
Exam Note: Siaiah Note: Please also refer to the separate dictated note~for this date of service dictated separately.~Patient seen individually. Discussed the patient with Nursing staff reviewed the chart.~Reviewed interim history and current functioning. Reviewed vital signs,~Labs/ Radiology~and current medications noted below. Continue current treatment with the changes noted in the dictated addendum note Assessment: Vital Signs/I&O: Vital Signs Date Time Temp Pulse Resp B/P (MAP) Pulse Ox O2 Delivery O2 Flow Rate FiO2 08/10/21 16:02 97.6 72 16 125/62 (83) 97 08/09/21 06:29 Room Air I & O 08/09/21 08/09/21 08/10/21 15:00 23:00 07:00 Intake Total 480 ml 480 ml Balance 480 ml 480 ml Labs: Laboratory Tests Test 08/10/21 05:44 White Blood Count 8.2 x10^3/uL (4.0-11.0) Red Blood Count 3.76 x10^6/uL (3.50-5.40) Hemoglobin 11.9 g/dL (12.0-15.5) L Hematocrit 36.6 % (36.0-47.0) Mean Corpuscular Volume 98 fL (79-100) Mean Corpuscular Hemoglobin 32 pg (25-35) Mean Corpuscular Hemoglobin Concent 32 g/dL (31-37) Red Cell Distribution Width 13.8 % (11.5-14.5) Platelet Count 215 x10^3/uL (140-400) Neutrophils (%) (Auto) 63 % (31-73) Lymphocytes (%) (Auto) 25 % (24-48) Monocytes (%) (Auto) 6 % (0-9) Eosinophils (%) (Auto) 5 % (0-3) H Basophils (%) (Auto) 1 % (0-3) Neutrophils # (Auto) 5.2 x10^3uL (1.8-7.7) Lymphocytes # (Auto) 2.0 x10^3/uL (1.0-4.8) Monocytes # (Auto) 0.5 x10^3/uL (0.0-1.1) Eosinophils # (Auto) 0.4 x10^3/uL (0.0-0.7) Basophils # (Auto) 0.1 x10^3/uL (0.0-0.2) Sodium Level 144 mmol/L (136-145) Potassium Level 4.4 mmol/L (3.5-5.1) Chloride Level 110 mmol/L (98-107) H Carbon Dioxide Level 25 mmol/L (21-32) Anion Gap 9 (6-14) Blood Urea Nitrogen 22 mg/dL (7-20) H Creatinine 1.0 mg/dL (0.6-1.0) Estimated GFR (Cockcroft-Gault) 53.3 BUN/Creatinine Ratio 22 (6-20) H Glucose Level 95 mg/dL (70-99) Calcium Level 10.5 mg/dL (8.5-10.1) H Total Bilirubin 0.4 mg/dL (0.2-1.0) Aspartate Amino Transferase (AST) 21 U/L (15-37) Alanine Aminotransferase (ALT) 29 U/L (14-59) Alkaline Phosphatase 85 U/L (46-116) Total Protein 6.6 g/dL (6.4-8.2) Albumin 3.0 g/dL (3.4-5.0) L Albumin/Globulin Ratio 0.8 (1.0-1.7) L Current Medications: Meds: Laboratory Tests Test 08/10/21 05:44 White Blood Count 8.2 x10^3/uL Red Blood Count 3.76 x10^6/uL Hemoglobin 11.9 g/dL Hematocrit 36.6 % Mean Corpuscular Volume 98 fL Mean Corpuscular Hemoglobin 32 pg Mean Corpuscular Hemoglobin Concent 32 g/dL Red Cell Distribution Width 13.8 % Platelet Count 215 x10^3/uL Neutrophils (%) (Auto) 63 % Lymphocytes (%) (Auto) 25 % Monocytes (%) (Auto) 6 % Eosinophils (%) (Auto) 5 % Basophils (%) (Auto) 1 % Neutrophils # (Auto) 5.2 x10^3uL Lymphocytes # (Auto) 2.0 x10^3/uL Monocytes # (Auto) 0.5 x10^3/uL Eosinophils # (Auto) 0.4 x10^3/uL Basophils # (Auto) 0.1 x10^3/uL Sodium Level 144 mmol/L Potassium Level 4.4 mmol/L Chloride Level 110 mmol/L Carbon Dioxide Level 25 mmol/L Anion Gap 9 Blood Urea Nitrogen 22 mg/dL Creatinine 1.0 mg/dL Estimated GFR (Cockcroft-Gault) 53.3 BUN/Creatinine Ratio 22 Glucose Level 95 mg/dL Calcium Level 10.5 mg/dL Total Bilirubin 0.4 mg/dL Aspartate Amino Transf (AST/SGOT) 21 U/L Alanine Aminotransferase (ALT/SGPT) 29 U/L Alkaline Phosphatase 85 U/L Total Protein 6.6 g/dL Albumin 3.0 g/dL Albumin/Globulin Ratio 0.8 Current Medications Medications (Trade) Dose Ordered Sig/Miki Route PRN Reason Start Time Stop Time Status Last Admin Dose Admin Acetaminophen (Tylenol) 650 mg PRN Q6HRS PRN PO MILD PAIN / TEMP > 100.3'F 07/29/21 15:00 07/29/21 15:44 DC Multi-Ingredient Ointment (Analgesic [place]) 1 martinez PRN QID PRN TP MUSCLE PAIN 07/29/21 15:00 Al Hydroxide/Mg Hydroxide (Mylanta Plus Xs) 15 ml PRN AFTMEALHC PRN PO DYSPEPSIA 07/29/21 15:00 Magnesium Hydroxide (Milk Of Magnesia) 2,400 mg PRN QHS PRN PO CONSTIPATION 07/29/21 15:00 Acetaminophen (Tylenol) 650 mg PRN Q4HRS PRN PO MILD PAIN / TEMP > 100.3'F 07/29/21 15:45 08/10/21 14:17 Aspirin (Aspirin Enteric Coated) 81 mg DAILY PO 07/30/21 09:00 08/10/21 08:40 Donepezil HCl (Aricept) 5 mg HS PO 07/29/21 21:00 08/10/21 20:20 Levothyroxine Sodium (Synthroid) 75 mcg DAILY06 PO 07/30/21 06:00 08/10/21 06:01 Non-Formulary Medication ([place] Carbonate ) 150 mg DAILY PO 07/30/21 09:00 07/29/21 16:01 DC Non-Formulary Medication ([place] Carbonate ) 300 mg HS PO 07/29/21 21:00 UNV Non-Formulary Medication (Nifedipine (Procardia Xl)) 90 mg DAILY PO 07/30/21 09:00 07/29/21 15:51 DC Nifedipine (Procardia Xl) 90 mg DAILY PO 07/30/21 09:00 08/07/21 07:50 DC 08/05/21 09:06 [place] Carbonate 300 mg QHS PO 07/29/21 21:00 08/10/21 20:20 [place] Carbonate 150 mg DAILY PO 07/30/21 09:00 08/10/21 08:40 Olanzapine (ZyPREXA ZYDIS) 2.5 mg PRN Q2HRS PRN PO PSYCHOSIS 07/29/21 21:30 07/30/21 00:11 Trazodone HCl (Desyrel) 50 mg PRN QHS PRN PO INSOMNIA, MAY REPEAT X1 07/29/21 21:30 UNV Nicotine (Nicoderm Cq 14mg Patch) 1 patch DAILY TD 07/30/21 11:00 08/10/21 08:40 Lorazepam (Ativan) 0.5 mg PRN Q4HRS PRN PO ANXIETY / AGITATION 07/30/21 21:45 07/31/21 21:38 Lorazepam (Ativan) 0.5 mg HS PO 08/01/21 21:00 08/10/21 20:20 Artificial Tears (Artificial Tears) 1 drop PRN Q15MIN PRN OU DRY EYE 08/01/21 11:15 08/04/21 05:33 Artificial Tears (Artificial Tears) 1 drop BID OU 08/03/21 09:00 08/10/21 20:20 Mirtazapine (Remeron) 7.5 mg QHS PO 08/06/21 21:00 08/10/21 20:20 I have reviewed the current psychotropics carefully including drug interactions. Risk benefit ratio favors no change other than as noted in my dictated progress note. Diagnosis: Problems: (1) Major neurocognitive disorder (2) Impulse control disorder, unspecified (3) Anxiety disorder, unspecified (4) Bipolar disorder, current episode mixed, severe, with psychotic features AUSTEN FLETCHER MD Aug 10, 2021 21:56
[2021-08-11] MEDS: LEVOTHYROXINE 75 MCG TABLET PO SCH (05:57)
[2021-08-11 06:10] VITALS: BP 133/76
[2021-08-11] MEDS: NICOTINE 14MG PATCH. TD SCH (08:24)
[2021-08-11] MEDS: POLYVINYL ALCOHOL 1.4% OPHTH SOLUTION 15ML BOTTLE. OU SCH ×2 (08:24→20:07)
[2021-08-11] MEDS: ASPIRIN ENTERIC COATED 81 MG TABLET.DR. PO SCH (08:24)
[2021-08-11] MEDS: LITHIUM CARBONATE 300 MG TABLET PO SCH ×2 (08:25→20:07)
--- NOTE | 2021-08-11 09:25 | NUR ---
Nursing note: Pt in dining room at time of AM med pass and assessment. She is pleasant, med compliant and cooperative. Pt denies having any pain at time of assessment. She is currently sitting quietly in the [place]ernandez. Will continue to monitor.
[2021-08-11 16:00] VITALS: BP 140/70
[2021-08-11] MEDS: ACETAMINOPHEN 325 MG TABLET PO PRN (16:29)
[2021-08-11] MEDS: MIRTAZAPINE 7.5 MG TABLET. PO SCH (20:07)
[2021-08-11] MEDS: DONEPEZIL HCL 5 MG TABLET. PO SCH (20:07)
[2021-08-11] MEDS: LORazepam 0.5 MG TABLET PO SCH (20:13)
--- NOTE | 2021-08-11 22:54 | NUR ---
Pt located in dayroom this evening. Pt calm and interactive. Compliant with whole medications.
[2021-08-12] MEDS: LEVOTHYROXINE 75 MCG TABLET PO SCH (05:42)
[2021-08-12 06:26] VITALS: BP 112/67
[2021-08-12] MEDS: ASPIRIN ENTERIC COATED 81 MG TABLET.DR. PO SCH (08:43)
[2021-08-12] MEDS: LITHIUM CARBONATE 300 MG TABLET PO SCH ×2 (08:44→19:57)
[2021-08-12] MEDS: NICOTINE 14MG PATCH. TD SCH (08:44)
[2021-08-12] MEDS: POLYVINYL ALCOHOL 1.4% OPHTH SOLUTION 15ML BOTTLE. OU SCH ×2 (08:44→19:57)
--- NOTE | 2021-08-12 11:57 | PDOC ---
Exam Note: Isaiah Note: This note is a late entry for 08/10/2021 covers elements not covered in my initial note. Subjective: The patient was seen individually in the evening of 08/10/2021 with Van VICTORIA, discussed and reviewed the chart. The patient slept 5-1/2 hours previous night. She has been more social interactive, appropriate. I met with her evening of 08/10. She was talking about going home on Friday because her caregiver was not available till then and we processed this at length. Her ultimate plan is to go to the [facility] to be closer to her daughter. Review of Systems: Impaired ambulation. No CV, , pulmonary, eye, ENT system symptoms on review. Mental Status Exam: The patient is oriented to herself and situation. She is very appropriate, interactive, appreciative of my care and visits with her, less hyperverbal, less manic. Speech coherent. Abstraction fair. Computation impaired. Language function intact. Attention span short. Mood and affect improved. No suicidal or homicidal ideation. Laboratory Data: Reviewed. Impression: Bipolar 1 disorder mixed with psychotic features. Mild cognitive impairment. Anxiety disorder unspecified. Impulse control disorder unspecified. Plan: Continue current psychotropics. Please be noted Dr. Rogers will cover for me from 08/11 through 08/22/2021. Assessment: Vital Signs/I&O: Vital Signs Date Time Temp Pulse Resp B/P (MAP) Pulse Ox O2 Delivery O2 Flow Rate FiO2 08/12/21 06:26 97.6 64 18 112/67 (82) 100 08/09/21 06:29 Room Air I & O 08/11/21 08/11/21 08/12/21 15:00 23:00 07:00 Intake Total 600 ml 600 ml Balance 600 ml 600 ml Current Medications: Meds: Current Medications Medications (Trade) Dose Ordered Sig/Miki Route PRN Reason Start Time Stop Time Status Last Admin Dose Admin Acetaminophen (Tylenol) 650 mg PRN Q6HRS PRN PO MILD PAIN / TEMP > 100.3'F 07/29/21 15:00 07/29/21 15:44 DC Multi-Ingredient Ointment (Analgesic [place]) 1 martinez PRN QID PRN TP MUSCLE PAIN 07/29/21 15:00 Al Hydroxide/Mg Hydroxide (Mylanta Plus Xs) 15 ml PRN AFTMEALHC PRN PO DYSPEPSIA 07/29/21 15:00 Magnesium Hydroxide (Milk Of Magnesia) 2,400 mg PRN QHS PRN PO CONSTIPATION 07/29/21 15:00 Acetaminophen (Tylenol) 650 mg PRN Q4HRS PRN PO MILD PAIN / TEMP > 100.3'F 07/29/21 15:45 08/11/21 16:29 Aspirin (Aspirin Enteric Coated) 81 mg DAILY PO 07/30/21 09:00 08/12/21 08:43 Donepezil HCl (Aricept) 5 mg HS PO 07/29/21 21:00 08/11/21 20:07 Levothyroxine Sodium (Synthroid) 75 mcg DAILY06 PO 07/30/21 06:00 08/12/21 05:42 Non-Formulary Medication ([place] Carbonate ) 150 mg DAILY PO 07/30/21 09:00 07/29/21 16:01 DC Non-Formulary Medication ([place] Carbonate ) 300 mg HS PO 07/29/21 21:00 UNV Non-Formulary Medication (Nifedipine (Procardia Xl)) 90 mg DAILY PO 07/30/21 09:00 07/29/21 15:51 DC Nifedipine (Procardia Xl) 90 mg DAILY PO 07/30/21 09:00 08/07/21 07:50 DC 08/05/21 09:06 [place] Carbonate 300 mg QHS PO 07/29/21 21:00 08/11/21 20:07 [place] Carbonate 150 mg DAILY PO 07/30/21 09:00 08/12/21 08:44 Olanzapine (ZyPREXA ZYDIS) 2.5 mg PRN Q2HRS PRN PO PSYCHOSIS 07/29/21 21:30 07/30/21 00:11 Trazodone HCl (Desyrel) 50 mg PRN QHS PRN PO INSOMNIA, MAY REPEAT X1 07/29/21 21:30 UNV Nicotine (Nicoderm Cq 14mg Patch) 1 patch DAILY TD 07/30/21 11:00 08/12/21 08:44 Lorazepam (Ativan) 0.5 mg PRN Q4HRS PRN PO ANXIETY / AGITATION 07/30/21 21:45 07/31/21 21:38 Lorazepam (Ativan) 0.5 mg HS PO 08/01/21 21:00 08/11/21 20:13 Artificial Tears (Artificial Tears) 1 drop PRN Q15MIN PRN OU DRY EYE 08/01/21 11:15 08/04/21 05:33 Artificial Tears (Artificial Tears) 1 drop BID OU 08/03/21 09:00 08/12/21 08:44 Mirtazapine (Remeron) 7.5 mg QHS PO 08/06/21 21:00 08/11/21 20:07 I have reviewed the current psychotropics carefully including drug interactions. Risk benefit ratio favors no change other than as noted in my dictated progress note. Diagnosis: Problems: (1) Major neurocognitive disorder (2) Impulse control disorder, unspecified (3) Anxiety disorder, unspecified (4) Bipolar disorder, current episode mixed, severe, with psychotic features AUSTEN FLETCHER MD Aug 12, 2021 11:57
[2021-08-12 15:44] VITALS: BP 121/82
[2021-08-12] MEDS: ACETAMINOPHEN 325 MG TABLET PO PRN (16:26)
--- NOTE | 2021-08-12 16:49 | NUR ---
Nsg Note; Loraine was alert though out the day, taking her meds without difficulty. She is calm and polite. She has enjoyed watching the news this afternoon
--- NOTE | 2021-08-12 19:06 | PN ---
DATE: 08/11/2021 SUBJECTIVE: The patient was seen today, met with the staff. Chart was reviewed. also covering for Dr. Schmitt. Staff reports no major complaint. The patient apparently has been pleasant, calm and cooperative. OBSERVATION: VITAL SIGNS: Temperature 97.6, blood pressure 133/96, pulse 77, respirations 20, O2 sat 96%. GENERAL: Slept about 7-1/2 hours last night. The patient's appetite is improved. CURRENT MEDICATIONS: The patient's current medications include mirtazapine 7.5 mg at night, lorazepam 0.5 mg at night and also 0.5 mg q.4 hours p.r.n., lithium carbonate 150 mg daily and 300 mg at night, Aricept 5 mg at night. The patient is not having any side effects. LABORATORY DATA: The patient's lab reviewed. The patient's lithium level was 0.9. The patient's sodium was 144. The patient's BUN was 22. Otherwise, lab results were within normal range. ASSESSMENT: 1. Bipolar disorder type 1 with psychotic features. 2. Generalized anxiety disorder, unspecified, and major neurocognitive disorder. PLAN: To continue with the current treatment plan. Length of stay is 7-[address]: Jin TID: [id number]
[2021-08-12] MEDS: DONEPEZIL HCL 5 MG TABLET. PO SCH (19:57)
[2021-08-12] MEDS: MIRTAZAPINE 7.5 MG TABLET. PO SCH (19:57)
[2021-08-12] MEDS: LORazepam 0.5 MG TABLET PO SCH (19:58)
--- NOTE | 2021-08-12 22:05 | NUR ---
Pt located in her room all evening. Calm and cooperative. Compliant with whole medications.
[2021-08-12] MEDS ORDERED: LORA-254 PO ×2 (23:14)
[2021-08-12] MEDS ORDERED: MAGN24003 PO (23:15)
[2021-08-12] MEDS ORDERED: MAG-124 PO (23:15)
[2021-08-12] MEDS ORDERED: MIRT7.5T8 PO (23:16)
[2021-08-12] MEDS ORDERED: METH57CR17 TP (23:16)
[2021-08-12] MEDS ORDERED: OLAN5TAB99 PO (23:17)
[2021-08-12] MEDS ORDERED: NICO1PAT25 TD (23:17)
[2021-08-12] MEDS ORDERED: POLY15DR27 EACHEYE ×2 (23:18)
--- NOTE | 2021-08-12 23:32 | PN ---
DATE: 08/12/2021 SUBJECTIVE: The patient was seen today, met with the staff. Chart was reviewed. Also covering for Dr. Schmitt. Staff reports no major behavior problems. She is pleasant, calm and cooperative. OBSERVATION: VITAL SIGNS: Temperature 97.6, blood pressure 112/67, pulse 64, respirations 18, O2 sat 100%. GENERAL: Slept about 8 hours last night. The patient's appetite is fair. The patient has no major physical complaints. LABORATORY DATA: The patient's lab reviewed. CURRENT MEDICATIONS: The patient's current medications include mirtazapine 7.5 mg at night, lorazepam 0.5 mg at night and also 0.5 mg q.4 hours p.r.n., lithium carbonate 150 mg daily and 300 mg at night, Aricept 5 mg at night. She is not having any side effects with the medications. ASSESSMENT: 1. Bipolar disorder type 1 with psychotic features. 2. Generalized anxiety disorder, unspecified. 3. Major neurocognitive disorder. PLAN: To continue with the current treatment plan. Length of stay is [address]: Jin TID: [id number]
[2021-08-13] MEDS: LEVOTHYROXINE 75 MCG TABLET PO SCH (05:20)
[2021-08-13 06:15] VITALS: BP 127/59
[2021-08-13] MEDS: ASPIRIN ENTERIC COATED 81 MG TABLET.DR. PO SCH (08:17)
[2021-08-13] MEDS: LITHIUM CARBONATE 300 MG TABLET PO SCH (08:17)
[2021-08-13] MEDS: POLYVINYL ALCOHOL 1.4% OPHTH SOLUTION 15ML BOTTLE. OU SCH (08:17)
[2021-08-13] MEDS: NICOTINE 14MG PATCH. TD SCH (08:18)
--- NOTE | 2021-08-13 13:00 | NUR ---
Tobacco Discharge Note [facility] Tobacco Hotline called with patient prior to discharge, YES Tobacco cessation medication listed with current medications for discharge. YES Transition Record was faxed to follow-up provider with the following elements: Reason for admission, procedures, tests, principal diagnosis, pending studies, patient instructions, 16/06 contact information for unit, phone number to obtain pending test results, plan for follow-up care, physician follow-up, advanced directive information, and medication list with dose, duration and instructions. This information was included in the following documents: History and physical, lab results, study results, progress notes, social work planning form, DC instruction form, patient visit summary, and medication reconciliation form. Date & time record faxed: 08/13/2021@ [phone], [phone], [phone] Record faxed to: [facility], [facility] Record discussed with/ report given to: Roseline Maza & Patient
--- NOTE | 2021-08-23 15:12 | DS ---
DATE OF DISCHARGE: 08/13/2021 FINAL DIAGNOSES: AXIS I: 1. Bipolar disorder, mixed with psychotic features. 2. Anxiety disorder, unspecified. 3. Major neurocognitive disorder with the delusions, depression, and behavioral disturbances. 4. Delirium, unspecified. AXIS II: None. 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 REASON FOR ADMISSION: This 81-year-old female was referred via [facility] in [place], [place] by her primary care physician because of increased confusion. The patient was also found gas stove in the home has been left turned on. Because of her increased confusion, she was not able to take care of her needs. The patient was also delusional and found wandering outside her home in hot weather. The patient also having visual hallucinations and also being paranoid. 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 She lives alone and her daughter lives in [place] and she is planning to arrange for her admission to assisted living in [place]. HISTORY OF PRESENT ILLNESS: The patient has a history of bipolar disorder and recently she is getting more confused, delirious, living alone at home with some limited assistance. The patient's sleep and appetite varied, also experienced psychotic symptoms and also increased confusion. The patient did not have any suicidal or homicidal thoughts on admission. HOSPITAL COURSE: The patient had a physical exam, routine lab work and also seen by the primary care for initial evaluation and followup. The patient also had a full lab workup. The patient was able to show some improvement, but still showing increased confusion, wandering and difficult to redirect. The patient did not have any problems from medications. Please see the list of the medications. The patient did not have any falls during the stay here. AFTERCARE PLAN: The patient was at time of discharge medically stable, significant improvement and should be returned to her home with home health and also follow up with the primary care doctor and also to be taken care of by the caregiver. The patient apparently no longer experiencing acute confusional state, but still has mood swings and cognitive deficits. Her daughter is planning to move her to [place] to be placed in assisted living. JORGE/NICOLE/JENIFFER DR: Jin TID: [id number]
== END 2021-08-13 13:00 | disposition home health service (06) | DRG 885 ==
LOC: GEROPSY 12:30
PROVIDERS: ADMIT Psychiatry & Neurology Psychiatry; ATTEND Psychiatry & Neurology Psychiatry
DX: F31.64 Bipolar disorder, current episode mixed, severe, with psychotic features (principal); I11.0 Hypertensive heart disease with heart failure; F63.9 Impulse disorder, unspecified; E03.9 Hypothyroidism, unspecified; F02.80 Dementia in other diseases classified elsewhere, unspecified severity, without behavioral disturbance, psychotic disturbance, mood disturbance, and anxiety; F41.1 Generalized anxiety disorder; G30.9 Alzheimer's disease, unspecified; G40.909 Epilepsy, unspecified, not intractable, without status epilepticus; I50.9 Heart failure, unspecified; Z66 Do not resuscitate; G56.31 Lesion of radial nerve, right upper limb; J98.4 Other disorders of lung; L73.9 Follicular disorder, unspecified; M41.9 Scoliosis, unspecified; Z86.73 Personal history of transient ischemic attack (TIA), and cerebral infarction without residual deficits; Z20.822 Contact with and (suspected) exposure to COVID-19; Z88.8 Allergy status to other drugs, medicaments and biological substances
CPT/HCPCS: 36415; 80053; 80061; 80178; 81001; 82306; 82607; 83036; 83540; 83550; 83735; 83970; 84100; 84436; 84443; 84480; 85025; 85379; 86592; 93005; 99407; U0003; 97110; 97530; 97535